=== PATIENT | female | born 1945 | race Caucasian/White ===

== ENCOUNTER 2017-04-14 08:38 | Emergency (ER) | payer MEDICARE, BC ==
[2017-04-14 08:47] VITALS: BP 117/86
[2017-04-14] MEDS ORDERED: Albuterol 2.5 MG/3 ML NEB.SOL* (0.083%) INH ONE (08:53)
[2017-04-14] MEDS ORDERED: Ipratropium 0.5MG/2.5ML NEB* 0.5 MG/2.5 ML NEB.SOLN INH ONE (08:53)
--- NOTE | 2017-04-14 08:57 | UC ---
Respiratory Complaint HPI - HPI Summary HPI Summary: 71 yo female with cough x 1 1/2 weeks cough feel like it is in her chest chest tightness no f/c myalgias and malaise no n/v/d has sinus pressure and post nasal drip - History of Current Complaint Chief Complaint: UCGeneralIllness Stated Complaint: URI Time Seen by Provider: 04/14/17 08:47 Hx Obtained From: Patient Onset/Duration: Gradual Onset, Lasting Weeks - 1 1/2 Timing: Constant Severity Initially: Mild Severity Currently: Moderate Pain Intensity: 3 - back pain is worse Pain Scale Used: 0-10 Numeric Character: Cough: Nonproductive Aggravating Factors: Nothing Alleviating Factors: Nothing Associated Signs And Symptoms: Positive: Wheezing, URI, Nasal Congestion, Sinus Discomfort - Allergies/Home Medications Allergies/Adverse Reactions: Allergies Allergy/AdvReac Type Severity Reaction Status Date / Time No Known Allergies Allergy Verified 04/14/17 08:41 Home Medications: Home Medications Cetirizine* [ZyrTEC 10 MG TAB*] 1 tab PO DAILY 04/14/17 [History Confirmed 04/14] Citalopram TAB* [Celexa TAB*] 20 mg PO BID 04/14/17 [History Confirmed 04/14/17] Lansoprazole [Prevacid] 1 cap PO BID 04/14/17 [History Confirmed 04/14/17] Solifenacin(NF) [Vesicare(NF)] 1 tab PO DAILY 04/14/17 [History Confirmed ] Tiotropium CAP.INH* [Spiriva CAP.INH*] 04/14/17 [History] buPROPion TAB* [Wellbutrin TAB*] 300 mg PO DAILY 04/14/17 [History Confirmed ] PMH/Surg Hx/FS Hx/Imm Hx Previously Healthy: Yes - Surgical History Surgical History: Yes Surgery Procedure, Year, and Place: 2009 -INTERSPINOUS SPACERS IN L3-L4 AND L-4 TO L-5 *DR JEANETTE SABA FOR ANYWHERE*, HYSTERECTOMY, CHOLECYSTECTOMY - Family History Known Family History: Positive: Hypertension Negative: Cardiac Disease, Diabetes - Social History Alcohol Use: None Substance Use Type: None Smoking Status (MU): Never Smoked Tobacco Review of Systems Constitutional: Fatigue Skin: Negative Eyes: Negative ENT: Nasal Discharge, Sinus Congestion, Sinus Pain/Tenderness Respiratory: Cough Cardiovascular: Negative Gastrointestinal: Negative Genitourinary: Negative Motor: Negative Neurovascular: Negative Musculoskeletal: Negative Neurological: Negative Psychological: Negative Is Patient Immunocompromised?: No All Other Systems Reviewed And Are Negative: Yes Physical Exam Triage Information Reviewed: Yes Appearance: Well-Appearing, No Pain Distress, Well-Nourished Vital Signs: Initial Vital Signs Temp 97.3 F 04/14/17 08:44 Pulse 72 04/14/17 08:44 Resp 16 04/14/17 08:44 BP 117/86 04/14/17 08:44 Pulse Ox 96 04/14/17 08:44 Vital Signs Reviewed: Yes Eyes: Positive: Conjunctiva Clear ENT: Positive: Hearing grossly normal, Nasal congestion, Nasal drainage, TMs normal. Negative: Tonsillar swelling, Tonsillar exudate, Trismus, Muffled/ hoarse voice Neck: Positive: Supple, Nontender Respiratory: Positive: No respiratory distress, No accessory muscle use, Wheezing - with forced expiration ONLY, OTHERWISE CLEAR Cardiovascular: Positive: RRR, No Murmur Musculoskeletal: Positive: ROM Intact, No Edema Neurological Exam: Normal Psychological Exam: Normal Skin Exam: Normal UC Diagnostic Evaluation - Laboratory O2 Sat by Pulse Oximetry: 96 - NORMAL/NOT HYPOXIC - Radiology Xray Interpretation: Positive (See Comments) - Minimal linear subsegmental atelectasis at the lower lung zones. No alveolar Radiology Interpretation Completed By: Radiologist Re-Evaluation - Re-Evaluation First Eval Re-Evaluation Time: 10:06 Change: Unchanged - LUNGS CLEAR/PT SUBJECTIVELY UNCHANGED Respiratory Course/Dx - Differential Dx/Diagnosis Provider Diagnoses: ACUTE BRONCHITIS Discharge - Discharge Plan Condition: Stable Disposition: HOME Prescriptions: Amoxicillin PO (*) [Amoxicillin 875 MG (*)] 875 mg PO BID #20 tab Benzonatate CAP* [Tessalon CAP*] 100 - 200 mg PO TID PRN #28 cap PRN Reason: Cough Patient Education Materials: Acute Bronchitis (ED) Referrals: Randell Bowman MD [Primary Care Provider] - Additional Instructions: RECHECK SUNDAY PLANNED
--- NOTE | 2017-04-14 09:19 | RAD ---
INDICATION: Cough for 1.5 weeks. Chest pressure. COMPARISON: June 14, 2010 TECHNIQUE: Dual energy PA and routine lateral views of the chest were obtained. REPORT: Minimal linear subsegmental atelectasis at the lower lung zones. No alveolar consolidation suspicious for pneumonia. Negative for pleural effusion or pneumothorax. The heart, pulmonary vasculature, and mediastinal contours are unremarkable. Unremarkable osseous structures and soft tissue contours. IMPRESSION: Minimal basilar subsegmental atelectasis without additional finding.
== END 2017-04-14 10:10 | disposition home or self-care (01) ==
LOC: UCEAST 08:38
DX: J20.9 Acute bronchitis, unspecified (principal); J98.11 Atelectasis
CPT/HCPCS: 71020; 99212; G0463; J7644

== ENCOUNTER 2017-04-30 16:06 | Emergency (ER) | payer MEDICARE, BC ==
[2017-04-30] MEDS ORDERED: diPHENhydraMINE IV* 50 MG/ML 1 ml VIAL (BENADRYL) IV ONE (17:10)
[2017-04-30] MEDS ORDERED: methylPREDNISolone 125 MG* 2 ML VIAL IV ONE (17:11)
[2017-04-30] MEDS ORDERED: Famotidine IV* 10 MG/ML 2 ML (20 mg) IV SLOW PU ONE (17:11)
[2017-04-30 19:10] VITALS: BP 111/72
--- NOTE | 2017-05-01 02:13 | ED ---
Mai Vyas Edward, scribed for Alessandra Segovia MD on 04/30/17 at 1638 . Allergic Reaction/Systemic - HPI Summary HPI Summary: 71 y/o female presents to the ED c/o sudden onset allergic reaction starting at around 02:00 last night. The pt developed hives diffusely @ her upper body and swelling @ her lower lip. The hives are pruritic. Denies CP, trouble swallowing or difficulty breathing. The pain is aggravated with movement and turning her neck. Associated sx: nausea, cough. Pt was sent to the ED by Dr. Bowman's office. Pt received an epidural shot on 04/25/17. - History of Current Complaint Chief Complaint: EDAllergicReaction Hx Obtained From: Patient Onset/Duration: Sudden Onset, Started hours ago Timing: Constant Pain Intensity: 5 Pain Scale Used: 0-10 Numeric Character: Pruritus, Hives Aggravating Factor(s): Other - walking, turning her neck Alleviating Factor(s): Nothing Associated Signs And Symptoms: Positive: Nausea. Negative: Chest Pain, Difficulty Breathing, Throat Tightening, Vomiting - Allergies/Home Medications Allergies/Adverse Reactions: Allergies Allergy/AdvReac Type Severity Reaction Status Date / Time Sucralfate Allergy Hives Verified 04/30/17 18:45 PMH/Surg Hx/FS Hx/Imm Hx Previously Healthy: No Endocrine/Hematology History: Denies: Hx Diabetes Cardiovascular History: Denies: Hx Hypertension - RESOLVED NO HAS HYPERTENSION, Hx Pacemaker/ICD GI History: Reports: Hx Gastroesophageal Reflux Disease History: Denies: Hx Renal Disease Sensory History: Denies: Hx Hearing Aid Psychiatric History: Denies: Hx Panic Disorder - Cancer History Hx Chemotherapy: No Hx Radiation Therapy: No - Surgical History Surgery Procedure, Year, and Place: 2009 -INTERSPINOUS SPACERS IN L3-L4 AND L-4 TO L-5 *DR JEANETTE SABA FOR ANYWHERE*, HYSTERECTOMY, CHOLECYSTECTOMY Infectious Disease History: No Infectious Disease History: Denies: Traveled Outside the [place] in Last 30 Days - Family History Known Family History: Positive: Hypertension Negative: Cardiac Disease, Diabetes - Social History Alcohol Use: None Hx Substance Use: No Substance Use Type: Reports: None Hx Tobacco Use: No Smoking Status (MU): Never Smoked Tobacco Review of Systems Constitutional: Negative Eyes: Negative ENT: Negative Cardiovascular: Negative Positive: Cough Positive: Nausea Genitourinary: Negative Musculoskeletal: Negative Skin: Other - hives diffusely Neurological: Negative Psychological: Normal All Other Systems Reviewed And Are Negative: Yes Physical Exam - Summary Physical Exam Summary: Appearance: Well-appearing, no pain distress, Well-nourished Skin: Warm, color reflects adequate perfusion. Total body uricaria. Head: Normal Head/Face Eyes: Conjunctiva clear ENT: Normal Neck: Supple Respiratory: Lungs clear, Normal breath sounds, no respiratory distress Cardio: RRR, No murmur, pulses normal, brisk capillary refill Musculoskeletal: Strength Intact/ ROM intact Neuro: Alert, muscle tone normal, facial symmetry, tongue deviates to the L, dysarthria, hull and deck remover equal, Motor function 5/5, Sensations intact, Gait WNL. Negative: speech normal, CN II-XII intact, sensory/motor intact Triage Information Reviewed: Yes Vital Signs On Initial Exam: Initial Vitals Temp Pulse Resp BP Pulse Ox 99 F 89 19 129/71 96 04/30/17 16:24 04/30/17 16:24 04/30/17 16:24 04/30/17 16:24 04/30/17 16:24 Vital Signs Reviewed: Yes - Mc Coma Scale Coma Scale Total: 15 Diagnostics - Vital Signs Vital Signs Temp Pulse Resp BP Pulse Ox 04/30/17 16:24 99 F 89 19 129/71 96 - Laboratory Lab Statement: Any lab studies that have been ordered have been reviewed, and results considered in the medical decision making process. Re-Evaluation - Re-Evaluation 1 Re-Evaluation Time: 18:37 Change: Improved Comment: Lip swelling improved. Redness at the knee and the back faded. Pt c/o dizziness. Pt will be d/c home with f/u with Dr. Bowman. Pt is agreeable Allergic Reaction Course/Dx - Course Assessment/Plan: 71 y/o female presents to the ED c/o sudden onset allergic reaction starting at around 02:00 last night. The pt developed hives diffusely @ her upper body and swelling @ her lower lip. The hives are pruritic. Denies CP , trouble swallowing or difficulty breathing. The pain is aggravated with movement and turning her neck. Associated sx: nausea. Pt was sent to the ED by Dr. Bowman's office. Pt received an epidural shot on 04/25/17. On re-eval, pt's lip swelling and redness has improved. Pt will be d/c home, instructed to take Benadryl 50 mg 4 times a day for at least 48 hours and then as long as needed. Pt is agreeable - Diagnoses Provider Diagnoses: Allergic reaction, Angioedema Discharge - Discharge Plan Condition: Stable Disposition: HOME Prescriptions: Famotidine TAB* [Pepcid 20 MG TAB*] 40 mg PO DAILY #10 tab predniSONE TAB* [Deltasone TAB*] 40 mg PO DAILY #10 tab Patient Education Materials: General Allergic Reaction (ED), Angioedema (ED) Referrals: Randell Bowman MD [Primary Care Provider] - 3 Days (PLEASE F/U IN 2-3 DAYS) Additional Instructions: TAKE 50 MG BENADRYL 4 TIMES A DAY FOR AT LEAST 48 HOURS AND THEN LONG NEEDED STOP THE SUCRALFATE TAKE PEPCID and XYZAL TAKE PREDNISONE DIRECTED RETURN TO THE ED FOR RETURN OR WORSENING SYMPTOMS The documentation as recorded by the Mai henderson Edward accurately reflects the service I personally performed and the decisions made by , Alessandra Segovia MD.
== END 2017-04-30 19:10 | disposition home or self-care (01) ==
LOC: ED 16:06
DX: T78.3XXA Angioneurotic edema, initial encounter (principal); T78.40XA Allergy, unspecified, initial encounter; R05 Cough; X58.XXXA Exposure to other specified factors, initial encounter; R11.0 Nausea
CPT/HCPCS: 99283; J1200; J2930

== ENCOUNTER 2017-07-03 06:23 | Day surgery (SDC) | payer MEDICARE, BC ==
[~2017-07-03 06:23] MED LIST: Buffered Lidocaine 0.9% SYRIN* 5 ML/SYR SYRINGE INTRADERM ONE; DiMENhydriNATE IV* 50 MG/ML VIAL IV PUSH PRN; Famotidine IV* 10 MG/ML 2 ML (20 mg) IV ONE; Morphine INJ* 2 MG/ML 1 ML CARPUJECT IV PRN; PROCHLORPERAZINE INJ 5 MG/ML 2 ML VIAL IV PRN; Scopolamine 1.5 mg* PATCH TRANSDERM PRN; fentaNYL* 50 MCG/ML 2 ML VIAL (100 MCG VIAL) IV PRN; oxyCODONE/Acetamin 5/325 MG* TAB PO PRN
[2017-07-03] MEDS ORDERED: ceFAZolin 2 GM PREMIX (*) 2 GM/50 ML BAG IVPB ONE (06:46)
[2017-07-03] MEDS ORDERED: Famotidine IV* 10 MG/ML 2 ML (20 mg) ONE (06:46)
[2017-07-03] MEDS ORDERED: Buffered Lidocaine 0.9% SYRIN* 5 ML/SYR SYRINGE ONE (06:47)
[2017-07-03] MEDS ORDERED: fentaNYL* 50 MCG/ML 2 ML VIAL (100 MCG VIAL) ONE (07:22)
[2017-07-03] MEDS ORDERED: Atracurium* 10 MG/ML 10 ML VIAL ONE (07:22)
[2017-07-03] MEDS ORDERED: Midazolam* 1 MG/ML 10 ML VIAL (10 MG) ONE (07:23)
[2017-07-03] MEDS ORDERED: KETAMINE HCL* 50 MG/ML 10 ML VIAL ONE (07:23)
[2017-07-03] MEDS ORDERED: Thrombin 5,000 UNITS* 1 APPLIC KIT - topical use - TOPICAL ONE (07:33)
[2017-07-03] MEDS ORDERED: Bacitracin IV* 50,000 UNITS INJ ONE (07:33)
[2017-07-03] MEDS ORDERED: Lidocaine 1% MPF wEPI 200,000* 30 ML SDV ONE (07:33)
[2017-07-03] MEDS ORDERED: Benzocaine/Butamben/Tetracain* SPRAY ONE (08:00)
[2017-07-03] MEDS ORDERED: Labetalol IV* 5 MG/ML 20 ML VIAL ONE (09:18)
[2017-07-03] MEDS ORDERED: Glycopyrrolate IV* 0.2 MG/ML 1 ML VIAL ONE (09:19)
[2017-07-03] MEDS ORDERED: Lidocaine 2% PF * 5 ML VIAL ONE (09:19)
[2017-07-03] MEDS ORDERED: Neostigmine Methylsulfate* 2 MG/2 ML SYRINGE ONE (09:19)
[2017-07-03] MEDS ORDERED: hydrALAZINE IV* 20 MG/ML VIAL ONE (09:19)
[2017-07-03] MEDS ORDERED: Metoprolol Tartrate IV* 1 MG/ML 5 ML VIAL ONE (09:19)
[2017-07-03] MEDS ORDERED: Propofol* 10 MG/ML 20 ML BTL IV PUSH ONE (09:19)
[2017-07-03 10:39] VITALS: BP 131/80
[2017-07-06] MEDS ORDERED: Scopolamine PATCH Remove* 1 NOTE MISC PATCH OFF ONE (05:53)
== END 2017-07-03 11:49 | disposition home or self-care (01) ==
LOC: OR 06:23
PROVIDERS: ATTEND Neurological Surgery
DX: M48.062 Spinal stenosis, lumbar region with neurogenic claudication (principal); Z53.09 Procedure and treatment not carried out because of other contraindication; T88.4XXA Failed or difficult intubation, initial encounter; K21.9 Gastro-esophageal reflux disease without esophagitis
CPT/HCPCS: A9270-GY; J0360; J0690; J2001; J2250; J2704; J3010; J3490

== ENCOUNTER 2017-07-10 12:53 | Observation (INO) | payer MEDICARE, BC ==
[~2017-07-10 12:53] MED LIST changes: +Buffered Lidocaine 0.9% SYRIN* 5 ML/SYR SYRINGE ONE; +Famotidine IV* 10 MG/ML 2 ML (20 mg) ONE; -Scopolamine 1.5 mg* PATCH TRANSDERM PRN; -oxyCODONE/Acetamin 5/325 MG* TAB PO PRN
[2017-07-10] MEDS ORDERED: Phenylephrine 0.5% NASAL* BTL ONE (12:55)
[2017-07-10] MEDS ORDERED: Benzocaine/Butamben/Tetracain* SPRAY ONE (12:55)
[2017-07-10] MEDS ORDERED: Bacitracin IV* 50,000 UNITS INJ ONE (12:55)
[2017-07-10] MEDS ORDERED: Lidocaine 1% MPF wEPI 200,000* 30 ML SDV ONE (12:55)
[2017-07-10] MEDS ORDERED: Thrombin 5,000 UNITS* 1 APPLIC KIT - topical use - TOPICAL ONE (12:55)
[2017-07-10] MEDS ORDERED: Lidocaine 4% TOPICAL* 50 ML TOP.SOLN ONE (12:55)
[2017-07-10] MEDS ORDERED: fentaNYL* 50 MCG/ML 2 ML VIAL (100 MCG VIAL) ONE (13:14)
[2017-07-10] MEDS ORDERED: KETAMINE HCL* 50 MG/ML 10 ML VIAL ONE (13:15)
[2017-07-10] MEDS ORDERED: Midazolam* 1 MG/ML 10 ML VIAL (10 MG) ONE (13:15)
[2017-07-10] MEDS ORDERED: ceFAZolin 1 GM in Dextrose (*) 2 GM/100 ML BAG IVPB ONE (14:30)
[2017-07-10] MEDS ORDERED: Morphine INJ* 10 MG/ML 1 ML CARPUJECT ONE (15:49)
[2017-07-10] MEDS ORDERED: Propofol* 10 MG/ML 20 ML BTL IV PUSH ONE (15:49)
[2017-07-10] MEDS ORDERED: Dexamethasone IV* 4 MG/ML 1 ML (4 MG) ONE (15:49)
[2017-07-10] MEDS ORDERED: Glycopyrrolate IV* 0.2 MG/ML 1 ML VIAL ONE (15:49)
[2017-07-10] MEDS ORDERED: Neostigmine Methylsulfate* 2 MG/2 ML SYRINGE ONE (15:49)
[2017-07-10] MEDS ORDERED: hydrALAZINE IV* 20 MG/ML VIAL ONE (15:49)
[2017-07-10] MEDS ORDERED: Ondansetron INJ* 2 MG/ML VIAL ONE (15:49)
[2017-07-10] MEDS ORDERED: Lidocaine 2% PF * 5 ML VIAL ONE (15:49)
[2017-07-10] MEDS ORDERED: Acetaminophen TAB* 325 MG PO PRN (16:07)
[2017-07-10] MEDS ORDERED: Magnesium Hydroxide LIQ* 30 ML UDC PO PRN (16:07)
[2017-07-10] MEDS ORDERED: PROCHLORPERAZINE INJ 5 MG/ML 2 ML VIAL IV PRN (16:11)
[2017-07-10] MEDS ORDERED: oxyCODONE/Acetamin 5/325 MG* TAB ONE (16:34)
[2017-07-10] MEDS: oxyCODONE/Acetamin 5/325 MG* TAB PO PRN ×2 (16:35→16:36)
--- NOTE | 2017-07-10 18:28 | RAD ---
INDICATION: L2-L3 laminectomy COMPARISON: None TECHNIQUE: A single crosstable lateral image was obtained for operative control purposes FINDINGS: There is a curved hemostat and there are retractors at the L2-L3 level.
[2017-07-10] MEDS: HYDROcodone/ACETAMIN 5-325 MG* 1 TAB PO PRN (22:17)
[2017-07-11] MEDS: HYDROcodone/ACETAMIN 5-325 MG* 1 TAB PO PRN ×2 (03:09→07:28)
[2017-07-11 07:39] VITALS: BP 132/66
--- NOTE | 2017-07-11 08:02 | PN ---
Progress Note - Progress Note Date of Service: 07/11/17 SOAP: Subjective: []POD # 1 Pre op leg pain relieved C/O incisional pain Ambulating ,voiding without difficulty Objective: []Drain slowed Neuro intact Assessment: []Satis post op course Plan: []D/C today D/C Instructions given
[2017-07-11] MEDS ORDERED: Citalopram TAB* 20 MG PO SCH (09:00)
[2017-07-11] MEDS ORDERED: BuPROPion XL* 300 MG TAB.XL PO SCH (09:00)
[2017-07-11] MEDS ORDERED: CMCS Solifenacin(NF) 5 MG TAB PO SCH (09:00)
[2017-07-11] MEDS ORDERED: Omeprazole CAP* 20 MG PO SCH (09:00)
[2017-07-11] MEDS ORDERED: Famotidine TAB* 20 MG PO SCH (09:00)
--- NOTE | 2017-07-12 21:29 | OP ---
OPERATIVE REPORT: DATE OF OPERATION: 07/10/17 DATE OF : 49 PRIMARY SURGEON: Jorge Watson MD SCREEN PRINTING PASTER: TOMASZ Chapa ANESTHESIA: General. PRE-OP DIAGNOSIS: Lumbar spinal stenosis, L2-3. POST-OP DIAGNOSIS: Lumbar spinal stenosis, L2-3. OPERATIVE PROCEDURE: Decompressive lumbar laminectomy, L2-3. DESCRIPTION OF PROCEDURE: After satisfactory general anesthesia was obtained, the patient was placed on the operating room table in a prone position with the chest supported on the Eugene frame and the back slightly flexed. The lumbar region was then clipped, prepped and draped in a sterile manner fo r a lumbar laminectomy and the skin incision outlined from L2 to L4. This incision was infiltrated w ith 1% Xylocaine with epinephrine after which it was turned down sharply to the level of the lumbar f ascia. The fascia and scar tissue were divided along the spinous processes of L2 and L3 and the para spinal musculature stripped away from these posterior elements using the periosteal elevator and mono polar cautery. An intraoperative x-ray was obtained verifying proper interspace localization after w hich a decompression was carried out by removing the spinous process of L2 with a Leksell rongeur as well as the most superior aspect of the spinous process of L3. The patient had a previous clamp place d on the spinous processes between L3 and L4 and this was not disturbed. Utilizing the Midas Jamie dri ll, the remaining portion of the base of the spinous process of L2 as well as the thickened medial fa cet complex was thinned out. A decompression was then carried out with Kerrison rongeurs. This was carried superiorly until the attachment of ligamentum flavum was taken down. The ligamentum flavum w as then removed with the Kerrison as well. There was marked compromise at the level of the L3 pedicle s. This was decompressed with the Kerrison's including removing the most superior aspect of the L3 p osterior elements. At the conclusion of the decompression, both L3 nerve roots were noted to be free in their course. After assuring adequate hemostasis, the wound was thoroughly irrigated, after whic h a piece of Gelfoam was placed over the laminectomy defect. A drain was placed in the epidural spac e and tunneled out toward the left side. The fascia was then reapproximated with 0 Vicryl suture, th e subcutaneous tissue was closed with 3-0 Vicryl suture, and the skin closed with skin clips. The es timated blood less was 100 cc and the final sponge, padding, and needle counts were correct. The pat ient was taken to the recovery room, extubated and in stable condition. [id number]/[facility] #: [id number]
== END 2017-07-11 10:20 | disposition home or self-care (01) ==
LOC: OR 12:53 → SSU 17:36
PROVIDERS: ADMIT Neurological Surgery; ATTEND Neurological Surgery
PROC: 00NY0ZZ Release Lumbar Spinal Cord, Open Approach (ICD-10-PCS; principal; 2017-07-10 14:30)
DX: M48.061 Spinal stenosis, lumbar region without neurogenic claudication (principal)
CPT/HCPCS: 72100; 96365; 96375; 96376; A9270-GY; G0378; J0360; J0690; J1100; J2001; J2250; J2270; J2405; J2704; J3010

== ENCOUNTER 2018-01-22 05:58 | Observation (INO) | payer MEDICARE ==
[~2018-01-22 05:58] MED LIST changes: -Buffered Lidocaine 0.9% SYRIN* 5 ML/SYR SYRINGE ONE; -DiMENhydriNATE IV* 50 MG/ML VIAL IV PUSH PRN; -Famotidine IV* 10 MG/ML 2 ML (20 mg) IV ONE; -Famotidine IV* 10 MG/ML 2 ML (20 mg) ONE; -Morphine INJ* 2 MG/ML 1 ML CARPUJECT IV PRN; -PROCHLORPERAZINE INJ 5 MG/ML 2 ML VIAL IV PRN; -fentaNYL* 50 MCG/ML 2 ML VIAL (100 MCG VIAL) IV PRN
[2018-01-22] MEDS ORDERED: Sodium Citrate/Citric Acid* 15 ML UDC PO ONE (06:00)
[2018-01-22] MEDS ORDERED: Famotidine IV* 10 MG/ML 2 ML (20 mg) IV ONE (06:00)
[2018-01-22] MEDS ORDERED: Dexamethasone IV* 4 MG/ML 1 ML (4 MG) IV SLOW PU ONE (06:00)
[2018-01-22] MEDS ORDERED: Famotidine IV* 10 MG/ML 2 ML (20 mg) ONE (06:16)
[2018-01-22] MEDS ORDERED: Dexamethasone IV* 4 MG/ML 1 ML (4 MG) ONE (06:16)
[2018-01-22] MEDS ORDERED: Buffered Lidocaine 0.9% SYRIN* 5 ML/SYR SYRINGE ONE (06:17)
[2018-01-22] MEDS ORDERED: Sodium Citrate/Citric Acid* 15 ML UDC ONE (06:17)
[2018-01-22] MEDS ORDERED: ceFAZolin 2 GM PREMIX (*) 2 GM/50 ML BAG IVPB ONE (06:17)
[2018-01-22] MEDS ORDERED: Lidocaine 1% MPF wEPI 200,000* 30 ML SDV ONE (06:42)
[2018-01-22] MEDS ORDERED: Thrombin 5,000 UNITS* 1 APPLIC KIT - topical use - TOPICAL ONE (06:43)
[2018-01-22] MEDS ORDERED: Bacitracin IV* 50,000 UNITS INJ ONE ×2 (07:12→07:39)
[2018-01-22] MEDS ORDERED: Rocuronium* 10 MG/ML VIAL ONE (07:20)
[2018-01-22] MEDS ORDERED: Midazolam* 1 MG/ML 2 ML VIAL (2 MG) ONE (07:21)
[2018-01-22] MEDS ORDERED: fentaNYL* 50 MCG/ML 2 ML VIAL (100 MCG VIAL) ONE ×2 (07:22→08:54)
[2018-01-22] MEDS ORDERED: Lidocaine 4% TOPICAL* 50 ML TOP.SOLN ONE (07:29)
[2018-01-22] MEDS ORDERED: Lidocaine 2% VISCOUS* 15 ML UDC ONE (07:29)
[2018-01-22] MEDS ORDERED: Naloxone* 0.4 MG/ML 1 ML VIAL IV PRN (07:34)
[2018-01-22] MEDS ORDERED: oxyCODONE/Acetamin 5/325 MG* TAB PO PRN (07:34)
[2018-01-22] MEDS ORDERED: fentaNYL* 50 MCG/ML 2 ML VIAL (100 MCG VIAL) IV PRN (07:34)
[2018-01-22] MEDS ORDERED: HYDROmorphone INJ* 0.5 MG/0.5 ML SYRINGE IV PRN (07:34)
[2018-01-22] MEDS ORDERED: Ondansetron INJ* 2 MG/ML VIAL IV PRN (07:34)
[2018-01-22] MEDS ORDERED: Scopolamine 1.5 mg* PATCH TRANSDERM PRN (07:34)
[2018-01-22] MEDS ORDERED: Acetaminophen IV 1GM/100ML * 1,000 MG/100 ML VIAL IVPB ONE (07:34)
[2018-01-22] MEDS ORDERED: Gelfoam 12-7 ADSORBABL SPONGE* 1 EA SPONGE ONE (07:39)
[2018-01-22] MEDS ORDERED: Gelfoam Sponge SIZE 100* SPONGE ONE (08:06)
[2018-01-22] MEDS ORDERED: Propofol* 10 MG/ML 20 ML BTL IV PUSH ONE (08:16)
[2018-01-22] MEDS ORDERED: Succinylcholine* 20 MG/ML 10 ML VIAL ONE (08:16)
[2018-01-22] MEDS ORDERED: Ketorolac INJ* 30 MG/ML 1 ML VIAL ONE (08:37)
[2018-01-22] MEDS ORDERED: EPHEDrine (Pressors)* 50 MG/ML VIAL ONE (08:37)
[2018-01-22] MEDS ORDERED: Desflurane* 240 ML INH ONE (09:00)
[2018-01-22] MEDS ORDERED: Acetaminophen TAB* 325 MG PO PRN (09:33)
[2018-01-22] MEDS ORDERED: HYDROcodone/ACETAMIN 5-325 MG* 1 TAB PO PRN (09:33)
[2018-01-22] MEDS ORDERED: Magnesium Hydroxide LIQ* 30 ML UDC PO PRN (09:33)
[2018-01-22] MEDS ORDERED: Acetaminophen IV 1GM/100ML * 100 ML ONE (10:17)
--- NOTE | 2018-01-22 12:08 | RAD ---
Indication: RIGHT lumbar L4-L5 discectomy. December 28, 2017 MRI. Comparison: December 28, 2017 MRI Technique: Crosstable lateral prone lumbar sacral spine radiograph 0815 hours Cross table lateral prone lumbar sacral spine radiograph 0841 hours Report: 0815 hours exam documents tissue retractor and instrument at the level of the L4-L5 facet joints. 0841 hours exam documents tissue retractor and instrument at the level of the L4 pedicle. IMPRESSION: #. Intraoperative control films.
[2018-01-22] MEDS: Citalopram TAB* 20 MG PO SCH ×2 (12:45→20:22)
[2018-01-22] MEDS: BuPROPion XL* 300 MG TAB.XL PO SCH (12:45)
[2018-01-22] MEDS: CMC: Solifenacin(NF) 5 MG TAB PO SCH (17:45)
[2018-01-22] MEDS: oxyCODONE TAB* 5 MG TAB PO PRN ×2 (18:55→22:49)
[2018-01-22] MEDS ORDERED: Atorvastatin* 20 MG TAB PO SCH (21:00)
[2018-01-23] MEDS: oxyCODONE TAB* 5 MG TAB PO PRN ×2 (02:48→06:41)
[2018-01-23] MEDS: Citalopram TAB* 20 MG PO SCH (07:29)
[2018-01-23] MEDS: BuPROPion XL* 300 MG TAB.XL PO SCH (07:29)
[2018-01-23] MEDS: CMC: Solifenacin(NF) 5 MG TAB PO SCH (07:29)
[2018-01-23] MEDS ORDERED: Aspirin 81 mg CHEW TAB* 81 MG TAB.CHEW PO SCH (09:00)
[2018-01-23] MEDS ORDERED: Omeprazole CAP* 20 MG PO SCH (09:00)
[2018-01-23] MEDS ORDERED: Famotidine TAB* 20 MG PO SCH (09:00)
[2018-01-23 09:31] VITALS: BP 141/77
[2018-01-25] MEDS ORDERED: Scopolamine PATCH Remove* 1 NOTE MISC PATCH OFF ONE (07:35)
--- NOTE | 2018-01-26 13:52 | OP ---
OPERATIVE REPORT: DATE OF OPERATION: 01/22/18 DATE OF : 49 SURGEON: Jorge Watson MD SHREDDED FILLER HOPPER FEEDER: TOMASZ Chapa ANESTHESIA: General. PRE-OP DIAGNOSIS: Herniated nucleus pulposus, L4-5, on the right. POST-OP DIAGNOSIS: Herniated nucleus pulposus, L4-5, on the right. OPERATIVE PROCEDURE: Lumbar diskectomy at L4-5 on the right with lysis of cicatrix and excision of h erniated nucleus pulposus, L4-5, with microdissection. DESCRIPTION OF PROCEDURE: After satisfactory general anesthesia was obtained, the patient was placed on the operating table in the prone position with the chest supported on the Eugene frame and the ba ck slightly flexed. The lumbar region was then clipped, prepped, and draped in a sterile manner for lumbar laminectomy and a skin incision outlined along the previous incision from L3 to the sacrum. T he patient had previously undergone a lumbar posterior procedure in which she had spinous process cla mps placed at L4-5. The previously placed clamps were dissected free utilizing the monopolar cautery . Self-retaining retractors were placed to facilitate exposure. An intraoperative x-ray was obtaine d verifying proper interspace localization after which a partial hemilaminectomy was carried out at t he L4-5 level on the right side. This was done by thinning out the inferior aspect of the lamina at L4 and the medial aspect of the facet complex. There was noted to be marked facet hypertrophy at thi s level. The access to normal anatomy was actually obtained at the superior aspect of L4. The right side of the L4 lamina was then decompressed with a Kerrison. This was carried inferiorly until the ligamentum flavum at L4-5 was removed. At this point of the procedure, the operating microscope was brought into the field and the remainder of the procedure done under microscopic visualization. Proj ecting beneath the L5 nerve root was a subcapsular herniation of disk material. An opening was made in the posterior longitudinal ligament and the disk space cleared of any loose disk material using pi tuitary forceps and curettes. At the conclusion of the decompression, the L5 nerve root was noted to be free in its course. After assuring adequate hemostasis, the wound was thoroughly irrigated after which a piece of Gelfoam was placed over the laminectomy defect. The fascia was then reapproximated with 0 Vicryl suture, the subcutaneous tissues closed with 3-0 Vicryl suture, and the skin closed wi th skin clips. The estimated blood loss was less than 50 cc, and the final sponge, padding, and need le counts were correct. The patient was taken to the recovery room extubated and in stable condition . [id number]/[facility] #: [id number]
== END 2018-01-23 10:40 | disposition home or self-care (01) ==
LOC: OR 05:58 → SSU 09:33 → UNDODISOB 01-23 10:20
PROVIDERS: ADMIT Neurological Surgery; ATTEND Neurological Surgery
PROC: 01NB0ZZ Release Lumbar Nerve, Open Approach (ICD-10-PCS; 2018-01-22)
PROC: 0SB20ZZ Excision of Lumbar Vertebral Disc, Open Approach (ICD-10-PCS; principal; 2018-01-22 07:30)
DX: M51.16 Intervertebral disc disorders with radiculopathy, lumbar region (principal)
CPT/HCPCS: 72100; 88304; A9270-GY; G0378; J0330; J0690; J1100; J1885; J2001; J2250; J2704; J3010

== ENCOUNTER 2019-01-18 14:22 | Emergency (ER) | payer MEDICARE ==
--- NOTE | 2019-01-18 14:35 | UC ---
General HPI - HPI Summary HPI Summary: Pt is a 73 year old female with a medical history of anxiety as well as urinary incontinence. Patient states several years ago she was a medication for blood pressure but this is improved and she's not currently on it. Patient states last evening she was at an outside graduation. Patient states she developed feeling very warm nauseous lightheaded like she has not passed out. Patient states she went under medical tent with a use ice packs that didn't really seem to help her very much. Patient went home did not vomit. Patient states she woke up at 1:30 this morning with the worse headache of her life. Patient states her neck felt very tight and stiff when she woke up. Patient took 400 mg of Motrin at this time. Patient's states she did go back to sleep. Patient states she continues to have a headache since this time. Patient denies vomiting but states intermittently feels nauseous. No vision changes. No chest pain or shortness of breath. No abdominal pain. denies any changes to her speech or slurred words. Patient denies any problems with thought process or were generation. Patient states around 03/31/30 this morning she tried to grab the phone with her left hand when it slipped through her hand she did not have grasp this resolved and has not recurred. Patient is not on any anticoagulation. Patient without any history of anything similar. Patient does have a remote history of migraines has been migraine free for several years and states this feels very different than anything she is experience. Patient's medications reviewed this visit. Patient's is at bedside. - History of Current Complaint Stated Complaint: NECK PAIN Time Seen by Provider: 01/18/19 14:32 Hx Obtained From: Patient Onset Severity: Mild Current Severity: Mild - Allergy/Home Medications Allergies/Adverse Reactions: Allergies Allergy/AdvReac Type Severity Reaction Status Date / Time sucralfate Allergy Swelling Verified 01/18/19 14:33 Of Face,Lips,& Throat Home Medications: Home Medications Ibuprofen 400 mg PO ONCE PRN 01/18/19 [History Confirmed 01/18/19] LevoCETirizine TAB (NF) [Xyzal TAB (NF)] 1 tab PO DAILY 01/18/19 [History Confirmed 01/18/19] National Institutes Of Health - NIH Scale Level of Consciousness: Alert/Keenly Responsive Ask Patient the Month and His/Her Age: Both Correct Ask Pt to Open/Close Eyes and Spoon Maker/Release Non-Paretic Hand: Both Correctly Best Gaze (Only Horizontal Eye Movement): Normal Visual Field Testing: No Visual Loss Facial Paresis-Pt to Smile & Close Eyes or Grimace Symmetry: Normal/Symmetrical Motor Function - Right Arm: No Drift-Holds 10 Seconds Motor Function - Left Arm: No Drift-Holds 10 Seconds Motor Function - Right Leg: No Drift-Holds 10 Seconds Motor Function - Left Leg: No Drift-Holds 10 Seconds Limb Ataxia-Must be out of Proportion to Weakness Present: Absent Sensory (Use Pinprick to Test Arms/Legs/Trunk/Face): Normal - gross - not pinprick Best Language (Describe Picture, Name Items): No Aphasia PMH/Surg Hx/FS Hx/Imm Hx Previously Healthy: Yes Other GI/ History: urinary incontinence Psychological History: Anxiety - Surgical History Surgical History: Yes Surgery Procedure, Year, and Place: 2009 -INTERSPINOUS SPACERS IN L3-L4 AND L-4 TO L-5 *DR JEANETTE SABA FOR ANYWHERE*, HYSTERECTOMY, CHOLECYSTECTOMY. 06/2017 DECOMPRESSIVE LAMINECTOMY L2-3 - Family History Known Family History: Positive: Hypertension Negative: Cardiac Disease, Diabetes - Social History Lives: With Family Alcohol Use: Rare Substance Use Type: None Smoking Status (MU): Never Smoked Tobacco Have You Smoked in the Last Year: No - Immunization History Most Recent Influenza Vaccination: 2017 Most Recent Pneumonia Vaccination: 2016 Review of Systems All Other Systems Reviewed And Are Negative: Yes Constitutional: Positive: Negative Skin: Positive: Negative Eyes: Positive: Negative ENT: Positive: Negative Respiratory: Positive: Negative Cardiovascular: Positive: Negative Motor: Positive: Other - LUE weakness earlier today Musculoskeletal: Positive: Negative Neurological: Positive: Negative Is Patient Immunocompromised?: No Physical Exam - Summary Physical Exam Summary: Vital Signs Reviewed: Yes A+Ox3, obvious headache and neck pain Eyes: Conjunctiva Clear, OCHOA. EOM intact and full ENT: Hearing grossly normal TM x 2 clear, mmoist, uvula midline, no exudate, no erythema Neck: Positive: Supple Respiratory: Positive: No respiratory distress, No accessory muscle use + CTA throughout no w/r Cardiovascular: RRR nl s1, s2 no m/r CBT <2 sec abd soft + BS nt/nd no guarding, no distension Musculoskeletal Exam: BLACKWELL x 4 without difficulty Strength Intact, ROM Intact, Neurological: Positive: Alert, + sensation throughout NIH = see exam separate section; + kernig sign Psychological: Positive: Normal Response To Family Skin: Positive: no rash, no ecchymosis Triage Information Reviewed: Yes Course/Dx - Course Course Of Treatment: Patient presents to urgent care with worse headache of her life that woke her from sleep at 1:30 this morning. Patient states last evening she felt that she got overheated nauseous and lightheaded while she was at a high school graduation outside. Patient states she went to bed and woke up at 1:30 with a headache. Patient took Motrin without improvement. Patient persistent headache and neck stiffness. Patient states at [place] [address] she had an episode of weakness of the left hand which has resolved and not recurred. Patient without chest pain shortness of breath. Patient without any other complaints. On exam vital signs are stable. Patient is not on anticoagulation. Patient's NIH is 0. Patient does have care Of the right lower extremity. Patient also obvious discomfort holding her neck and head with movement. Very concerning for subarachnoid hemorrhage. BG 180 EKG normal without acute changes. Recommend patient go emergency department by EMS for further evaluation and treatment. Patient in agreement with plan. Spoke to Dr. New in the emergency department aware patient's, will run as code stroke. critical care time 20 minutes - Diagnoses Provider Diagnosis: Severe headache, Nuchal rigidity Discharge - Sign-Out/Discharge Documenting (check all that apply): Patient Departure All imaging exams completed and their final reports reviewed: No Studies - Discharge Plan Condition: Fair Disposition: TRANS HIGHER LVL OF CARE FAC Referrals: Randell Bowman MD [Primary Care Provider] - - Billing Disposition and Condition Condition: FAIR Disposition: Trans Higher Lvl of Care Fac
[2019-01-18] MEDS ORDERED: NS 0.9% 1000 ML** 1,000 ML IV ONE (15:00)
[2019-01-18 15:01] VITALS: BP 135/68
== END 2019-01-18 15:14 | disposition short-term general hospital (02) ==
LOC: UCEAST 14:22
DX: R51 Headache (principal); R29.1 Meningismus; F41.9 Anxiety disorder, unspecified; R32 Unspecified urinary incontinence
CPT/HCPCS: 96361; 99213; G0463

== ENCOUNTER 2019-01-18 15:17 | Emergency (ER) | payer MEDICARE ==
[2019-01-18] MEDS ORDERED: NS 0.9% 1000 ML** 1,000 ML IV ONE (15:21)
--- NOTE | 2019-01-18 15:23 | ED ---
Neurological HPI - HPI Summary HPI Summary: This patient is a 73 year old F brought to ED with a chief complaint of sudden severe headache at 0100 this morning. Gonzalo Cody called by EMS at 1512 with ETA 5 minutes. Patient arrives at 1517. Dr. New at bedside at 1517, NIH scale in evaluation 0. Upon arrival, patient complains of headache worse on the left side. Patient reports having weakness in left hand this morning at 0900 lasting a few seconds. Last known normal was 1830 yesterday per . Yesterday at 1900, patient attended a graduation and was in the sun for 45 minutes. Per , her face was red after sitting in the sun. Patient felt like she was going to vomit then. She woke up this morning with neck pain and stiffness. Patient is not on blood thinners. The patient rates the pain 5/10 in severity. Symptoms aggravated by nothing. Symptoms alleviated by nothing. Patient reports confusion. Patient denies fever, CP, SOB, abdominal pain, numbness, slurred speech. No PMHx of strokes, HTN, cardiac disease, DM. - History of Current Complaint Stated Complaint: STROKE PER EMS Hx Obtained From: Patient, Family/Drapery Worker - , EMS Onset/Duration: Sudden Onset, Started hours ago - 0100 this morning, Still Present Timing: Constant Onset Severity: Moderate Current Severity: Moderate Pain Intensity: 5 Pain Scale Used: 0-10 Numeric Aggravating: Nothing Alleviating: Nothing Associated Signs and Symptoms: Positive: Negative - fever, CP, SOB, abdominal pain, numbness, slurred speech, Headache, Neck Pain/Stiffness - Additional Pertinent History Primary Care Physician: [id number] - Allergy/Home Medications Allergies/Adverse Reactions: Allergies Allergy/AdvReac Type Severity Reaction Status Date / Time sucralfate Allergy Swelling Verified 01/18/19 14:33 Of Face,Lips,& Throat PMH/Surg Hx/FS Hx/Imm Hx Endocrine/Hematology History: Denies: Hx Diabetes, Hx Anemia Cardiovascular History: Reports: Other Cardiovascular Problems/Disorders - Mixed hyperlipidemia Denies: Hx Hypertension - RESOLVED , Hx Pacemaker/ICD Respiratory History: Reports: Other Respiratory Problems/Disorders - Difficult airway, very difficult intubation GI History: Reports: Hx Gastroesophageal Reflux Disease Denies: Other GI Disorders History: Reports: Other Problems/Disorders - Urinary incontinence, on vesicare, no recent symptoms Denies: Hx Renal Disease Musculoskeletal History: Reports: Hx Arthritis - back, Hx Bursitis - HX OF LEFT HIP - AND CURRENTLY IN THE RIGHT LEG, Other Musculoskeletal History - SPINAL STENOSIS Denies: Hx Tendonitis Sensory History: Reports: Hx Contacts or Glasses - GLASSES, Hx Hearing Aid Opthamlomology History: Reports: Hx Contacts or Glasses - GLASSES Neurological History: Denies: Hx CVA, Hx Transient Ischemic Attacks (TIA), Other Neuro Impairments/ Disorders Psychiatric History: Reports: Hx Anxiety - ON MEDICATION FOR, Hx Depression - ON MEDICATION FOR Denies: Hx Panic Disorder - Cancer History Hx Chemotherapy: No Hx Radiation Therapy: No - Surgical History Surgery Procedure, Year, and Place: 2009 -INTERSPINOUS SPACERS IN L3-L4 AND L-4 TO L-5 *DR JEANETTE SABA FOR ANYWHERE*, HYSTERECTOMY, CHOLECYSTECTOMY. 06/2017 DECOMPRESSIVE LAMINECTOMY L2-3 Hx Anesthesia Reactions: No - Family History Known Family History: Positive: Hypertension Negative: Cardiac Disease, Diabetes - Social History Alcohol Use: Rare Hx Substance Use: No Substance Use Type: Reports: None Hx Tobacco Use: No Smoking Status (MU): Never Smoked Tobacco Review of Systems Negative: Fever Negative: Chest Pain Negative: Shortness Of Breath Negative: Abdominal Pain Neurological: Other - Confusion Positive: Headache, Weakness - Left hand, lasting a few seconds. Negative: Numbness, Slurred Speech All Other Systems Reviewed And Are Negative: Yes Physical Exam - Summary Physical Exam Summary: Appearance: Well appearing, no pain distress Skin: warm, dry, reflects adequate perfusion Head/face: normal Eyes: EOMI, OCHOA ENT: normal Neck: spasm of left side of neck Respiratory: CTA, breath sounds present Cardiovascular: RRR, pulses symmetrical Abdomen: non-tender, soft Musculoskeletal: normal, strength/ROM intact Neuro: normal, sensory motor intact, A&Ox3 NIH: 0 GCS: 15 Triage Information Reviewed: Yes Vital Signs On Initial Exam: Initial Vitals Temp Pulse Resp BP Pulse Ox 98.4 F 86 20 138/81 93 01/18/19 15:20 01/18/19 15:20 01/18/19 15:20 01/18/19 15:20 01/18/19 15:20 Vital Signs Reviewed: Yes Procedures - Lumbar Puncture Lumbosacral Joint Position: Lateral Decubitus Aseptic Technique: Local Anesthesia, Lidocaine, Other - Betadine prep Anesthesia Used: 1.0% Lido Spinal Needle Used: Other - 21 Gauge Lumbar Puncture Note: Patient has previously had surgery on L3-L5. Lumbar puncture unsuccessful. Therefore, I requested Dr. Ozuna from anesthesia to perform the procedure and ordered a lumbar spine x-ray. Diagnostics - Laboratory Result Diagrams: 01/18/19 15:37 01/18/19 15:37 Lab Statement: Any lab studies that have been ordered have been reviewed, and results considered in the medical decision making process. - Radiology CXR Radiology Interpretation Completed By: Radiologist Summary of Radiographic Findings: No active cardiopulmonary disease is noted. Dr. New has reviewed this radiology report. L-spine Radiology Interpretation Completed By: Radiologist Summary of Radiographic Findings: Multilevel degenerative disc disease. No compression fracture is noted. Dr. New has reviewed this radiology report. - CT Brain CT Interpretation Completed By: Radiologist Summary of CT Findings: No intracranial mass or hemorrhage is noted. Dr. New has reviewed this radiology report. - EKG 1532 Cardiac Rate: NL EKG Rhythm: Sinus Rhythm Summary of EKG Findings: NSR at 81 BPM. NIH Scale - NIH Scale Level of Consciousness: Alert/Keenly Responsive Ask Patient the Month and His/Her Age: Both Correct Ask Pt to Open/Close Eyes and Industrial Engineering Analyst/Release Non-Paretic Hand: Both Correctly Best Gaze (Only Horizontal Eye Movement): Normal Visual Field Testing: No Visual Loss Facial Paresis-Pt to Smile & Close Eyes or Grimace Symmetry: Normal/Symmetrical Motor Function - Right Arm: No Drift-Holds 10 Seconds Motor Function - Left Arm: No Drift-Holds 10 Seconds Motor Function - Right Leg: No Drift-Holds 10 Seconds Motor Function - Left Leg: No Drift-Holds 10 Seconds Limb Ataxia-Must be out of Proportion to Weakness Present: Absent Sensory (Use Pinprick to Test Arms/Legs/Trunk/Face): Normal Best Language (Describe Picture, Name Items): No Aphasia Dysarthria (Read Several Words): Normal Extinction and Inattention: No Abnormality Total Score: 0 Re-Evaluation - Re-Evaluation First Eval Re-Evaluation Time: 16:38 Comment: Discussed results with patient. Patient is agreeable to lumbar puncture procedure. She has had a back operation in the lower back, "clips in L4 & L5" per patient, but they did not fuse the vertebrae. Patient is not on blood thinners. Course/Dx - Course Course Of Treatment: This patient is a 73 year old F brought to ED with a chief complaint of sudden severe headache at [address] revealed No intracranial mass or hemorrhage is noted. Blood work obtained. In the ED course , patient received fluids, Reglan, and Benadryl. EKG at 1532 revealed NSR at 81 BPM. CXR revealed no active cardiopulmonary disease is noted. Discussed patient case with Dr. Barlow, neurologist, who recommended a lumbar puncture. Patient is agreeable to a lumbar puncture procedure. She has had back surgery ("clips" per patient) on L3-L5 but they did not fuse the vertebrae, so I attempted the lumbar puncture. However, I was unsuccessful, so I requested Dr. Ozuna from anesthesia to perform the procedure and ordered an x-ray of the lumbar spine. L- spine XR revealed multilevel degenerative disc disease. No compression fracture is noted. Patient will be signed out to Dr. Rose Trivedi at shift change at 1900 on 01/18/19 pending lumbar puncture results. - Differential Dx Differential Diagnoses Neuro: Positive: Intracranial Bleed, Migraine, Transient Ischemic Attack - Diagnoses Provider Diagnoses: Headache During the Visit The Following Alert/Code Occurred: Code Ryan - Physician Notifications Discussed Care Of Patient With: Jorge Barlow Time Discussed With Above Provider: 16:20 Instructed by Provider To: Other - Discussed patient case with Dr. Barlow, neurologist, who does not think the patient is experiencing a stroke. He recommends an LP. At 1716 discussed patient case with Dr. Denita Ozuna who will perform the LP. - Critical Care Time Critical Care Time: 30-74 min Discharge - Sign-Out/Discharge Documenting (check all that apply): Sign-Out Patient Signing out patient TO: Rose Trivedi - At shift change at 1900 on 01/18/19 Patient Received Moderate/Deep Sedation with Procedure: No - Discharge Plan Condition: Stable Referrals: Randell Bowman MD [Primary Care Provider] - - Billing Disposition and Condition Condition: STABLE - Attestation Statements Document Initiated by Scribe: Yes Documenting Scribe: Jean Pride Provider For Whom Scribe is Documenting (Include Credential): Floyd New MD Scribe Attestation: I, Jean Pride, scribed for Floyd New MD on 01/18/19 at 1855. Scribe Documentation Reviewed: Yes Provider Attestation: The documentation as recorded by the scribe, Jean Pride accurately reflects the service I personally performed and the decisions made by me, Floyd New MD Status of Scribe Document: Viewed
[2019-01-18 15:44] LABS: ABS Basophils 0.1 10^3/ul (0-0.2); ABS Eosinophils 0.1 10^3/ul (0-0.6); ABS Lymphocytes 1.5 10^3/ul (1.0-4.8); ABS Monocytes 0.6 10^3/ul (0-0.8); ABS Neutrophils 5.3 10^3/ul (1.5-7.7); Eosinophil % 0.8 %; Hematocrit 38 % (35-47); Hemoglobin 12.7 g/dL (12.0-16.0); Lymphocyte % 19.8 %; Mean Corpuscular HGB Conc 33 g/dL (31-36); Mean Corpuscular Hemoglobin 30 pg (27-31); Mean Corpuscular Volume 91 fL (80-97); Mean Platelet Volume 8.3 fL (7.4-10.4); Platelet Count 177 10^3/uL (150-450); Red Cell Distribution Width 13 % (10-15); White Blood Count 7.5 10^3/uL (3.5-10.8)
[2019-01-18 15:52] LABS: Activated Partial Thrombo Time 30.7 seconds (26.0-38.0); INR 1.01 (0.82-1.09)
[2019-01-18 16:02] LABS: Albumin 3.7 g/dL (3.2-5.2); Albumin/Globulin Ratio 1.5 (1-3); BUN/Creatinine Ratio 14.9 (8-20); Calcium 8.9 mg/dL (8.6-10.3); EGFR African American 77.7 (>60); EGFR Non-African American 64.2 (>60); Globulin 2.4 g/dL (2-4); HDL Cholesterol 35.6 mg/dL; Potassium 3.5 mmol/L (3.5-5.0); Total Bilirubin 0.5 mg/dL (0.2-1.0); Total Protein 6.1 g/dL (6.4-8.9)
[2019-01-18] MEDS ORDERED: diPHENhydraMINE IV* 50 MG/ML 1 ml VIAL (BENADRYL) IV ONE (16:24)
[2019-01-18] MEDS ORDERED: Metoclopramide IV* 5 MG/ML 2 ML VIAL IV ONE (16:24)
[2019-01-18] MEDS ORDERED: Lidocaine 1% INJ* 10 MG/ML 30 ML SDV ONE (16:40)
[2019-01-18 19:06] LABS: Body Fluid Source Cerebral Spinal
--- NOTE | 2019-01-18 19:12 | ED ---
Progress - Progress Note Progress Note: This patient was signed out from Dr. New to Dr. Trivedi upon shift change at 19 :00 01/18/19 pending CSF results. The CSF was negative. Upon re-eval the patient was comfortable in bed. The patient will be discharged and follow up with her PCP. The patient is agreeable with this plan. Re-Evaluation - Re-Evaluation First Eval Re-Evaluation Time: 16:38 Comment: Discussed results with patient. Patient is agreeable to lumbar puncture procedure. She has had a back operation in the lower back, "clips in L4 & L5" per patient, but they did not fuse the vertebrae. Patient is not on blood thinners. Course/Dx - Course Course Of Treatment: This patient was signed out from Dr. New to Dr. Trivedi upon shift change at 19:00 01/18/19 pending CSF results. The CSF was negative. Upon re-eval the patient was comfortable in bed. The patient will be discharged and follow up with her PCP. The patient is agreeable with this plan. - Diagnoses Provider Diagnoses: Headache During the Visit The Following Alert/Code Occurred: Code Ryan - Provider Notifications Time Discussed With Above Provider: 16:20 - Critical Care Time Critical Care Time: 30-74 min Discharge - Sign-Out/Discharge Documenting (check all that apply): Patient Departure - DC, Receiving Sign-Out Receiving patient FROM: Floyd New Patient Received Moderate/Deep Sedation with Procedure: No - Discharge Plan Condition: Stable Disposition: HOME Patient Education Materials: Acute Headache (DC) Referrals: Randell Bowman MD [Primary Care Provider] - 3 Days Additional Instructions: PLEASE RETURN TO THE ED IMMEDIATELY FOR WORSENING OR CONCERNING SYMPTOMS. - Billing Disposition and Condition Condition: STABLE Disposition: Home - Attestation Statements Document Initiated by Cuongibe: Yes Documenting Scribe: Yonatan Johnson Provider For Whom Poppy is Documenting (Include Credential): Rose Trivedi MD Scribe Attestation: Yonatan Vyas scribed for Rose Trivedi MD on 01/19/19 at 0509. Scribe Documentation Reviewed: Yes Provider Attestation: The documentation as recorded by the Yonatan henderson accurately reflects the service I personally performed and the decisions made by me, Rose Trivedi MD Status of Scribe Document: Viewed
[2019-01-18 19:23] LABS: CSF Glucose 82 mg/dL (40-70)
[2019-01-18 20:50] VITALS: BP 163/79
== END 2019-01-18 20:49 | disposition home or self-care (01) ==
LOC: ED 15:17
DX: R51 Headache (principal); M51.37 Other intervertebral disc degeneration, lumbosacral region; E78.2 Mixed hyperlipidemia; K21.9 Gastro-esophageal reflux disease without esophagitis; F41.9 Anxiety disorder, unspecified; F32.9 Major depressive disorder, single episode, unspecified; Z88.8 Allergy status to other drugs, medicaments and biological substances; Z79.899 Other long term (current) drug therapy
CPT/HCPCS: 36415; 70450; 71045; 72110; 80053; 80061; 82945; 83605; 84157; 84484; 85025; 85610; 85730; 87070; 87205; 89051; 93005; 96361; 96374; 96375; 99285; J1200; J2765

== ENCOUNTER 2019-08-05 07:30 | Inpatient (IN) | payer MEDICARE ==
[2019-09-01] MEDS ORDERED: Buffered Lidocaine 1% SYRIN* 1 ML/SYRINGE INTRADERM ONE (10:38)
--- OUTSIDE RECORDS SUMMARY | 2019-09-02 05:49 | XMS REPORT | Continuity of Care Document ---
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 Onset: spinal stenosis of lumbar region Low back pain Jorge Watson M.D. Onset: 07/30/2017 Convalescence after surgery Jorge Watson M.D. Onset: 08/20/2017 Localized, primary osteoarthritis of the pelvic Sindy Martinez M.D. Onset: 12/2017 region and thigh Localized, primary osteoarthritis Sindy Martinez M.D. Onset: 12/26/2017 Trochanteric bursitis Sindy Martinez M.D. Onset: 12/26/2017 Displacement of lumbar intervertebral disc Jorge Watson M.D. Onset: 2017 without myelopathy Social History Type Date Description Comments Sex Unknown ETOH Use Denies alcohol use Tobacco Use Start: Unknown Patient has never smoked Recreational Drug Use Denies Drug Use Smoking Status Reviewed: 07/28/19 Patient has never smoked Exercise Type/Frequency Exercises sporadically Allergies, Adverse Reactions, Alerts Active Allergies Reaction Severity Comments Date Cymbalta Anaphylaxis Severe 07/20/2017 Sucralfate 07/20/2017 Inactive Allergies NKDA 06/26/2017 Medications Active Medications SIG Qnty Indications Ordering Date Provider Gabapentin 1 by mouth 90caps M54.5 Jorge Watson 07/30/2017 300mg Capsules three times a M.D. day Pantoprazole Sodium 1 by mouth Unknown 40mg every day Solution Rec Bupropion HCL ER (XL) 1 by mouth Unknown 300mg every day Tablets ER 24HR Citalopram Hydrobromide 1 by mouth Unknown 20mg every day Tablets Vesicare 1 by mouth Unknown 5mg Tablets every day Levocetirizine 1 every day as Unknown Dihydrochloride needed 5mg Tablets Sulfamethoxazole/Trimeth 1 by mouth Unknown oprim DS twice a day 800-160mg Tablets Medications Administered in Office Medication SIG Qnty Indications Ordering Provider Date Depomedrol 40MG GOLDEN Connors 09/23/2018 Injection Depomedrol 40MG Sindy Martinez M.D. 12/26/2017 Injection Immunizations Description No Information Available Vital Signs Date Vital Result Comment 07/28/2019 3:41pm Height 63 inches 5'3" Weight 195.00 lb Heart Rate 100 /min BP Systolic 126 mmHg BP Diastolic 78 mmHg Body Temperature 98.5 F Pain Level 4 left buttock down left leg BMI (Body Mass Index) 34.5 kg/m2 06/25/2019 1:23pm Height 63 inches 5'3" Weight 192.00 lb Heart Rate 82 /min BP Systolic 140 mmHg BP Diastolic 92 mmHg Pain Level 10 Left lower back buttock and leg BMI (Body Mass Index) 34.0 kg/m2 Results Test Acquired Date Facility Test Result H/L Range Note CBC No Diff 07/22/2019 [facility] White Blood 6.4 10^3/uL Normal 3.5-10.[address] [place] [address] [phone] Red Blood Count 4.84 10^6/uL Normal 3.70-4.87 Hemoglobin 14.7 g/dL Normal 12.0-16.0 Hematocrit 44 % Normal 35-47 Mean Corpuscular Volume 91 fL Normal 80-97 Mean Corpuscular Hemoglobin 30 pg Normal 27-31 Mean Corpuscular HGB Conc 33 g/dL Normal 31-36 Red Cell Distribution Width 13 % Normal 10-15 Platelet Count 202 10^3/uL Normal 150-450 Mean Platelet Volume 8.6 fL Normal 7.4-10.4 Urinalysis Profile 07/22/2019 [facility] Urine Color Yellow [address] [place] [address] [phone] Urine Appearance Cloudy Urine Specific [place] 1.026 Normal 1.010-1.030 Urine pH 5.0 Normal 5-9 Urine Urobilinogen Negative Negative Urine Ketones Negative Negative Urine Protein Negative Negative Urine Leukocytes 2+ Abnormal Negative Urine Blood Negative Negative Urine Nitrite Negative Negative Urine Bilirubin Negative Negative Urine Glucose Negative Negative Urine White Blood Cell 1+(6-10/hpf) Abnormal Absent Urine Red Blood Cell Trace(0-2/hpf) Absent Urine Bacteria 1+ Abnormal Absent Urine Squamous Epithelial Cell Present Abnormal Absent Inr/Protime 07/22/2019 [facility] Inr 0.96 Normal 0.82-1.09 [address] [place] [address] [phone] Laboratory test 07/22/2019 [facility] Partial 33.7 Normal 26.0 -38.0 finding [address] [facility] [place] [address] Time PTT [phone] Basic Metabolic 07/22/2019 [facility] Sodium 139 mmol/L Normal 135-145 Panel [address] [place] [address] [phone] Potassium 3.9 mmol/L Normal 3.5-5.0 Chloride 103 mmol/L Normal 101-111 Co2 Carbon Dioxide 30 mmol/L Normal 22-32 Anion Gap 6 mmol/L Normal 2-11 Glucose 99 mg/dL Normal 70-100 Blood Urea Nitrogen 18 mg/dL Normal 6-24 Creatinine 0.79 mg/dL Normal 0.51-0.95 BUN/Creatinine Ratio 22.8 High 8-20 Calcium 9.1 mg/dL Normal 8.6-10.3 Egfr Non- 71.7 >60 Egfr 86.8 >60 2 Type & Screen 07/22/2019 [facility] Antibody Screen NEGATIVE [address] [place] [address] [phone] Patient Blood Type AB Negative Urine Culture And 07/22/2019 [facility] Urine Culture SEE RESULT [address] [place] [address] [phone] 1 Standard intensity warfarin therapeutic range: 2.0-3.0 High intensity warfarin therapeutic range: 2.5-3.5 2 Because ethnic data is not always readily available, this report includes an eGFR for both -Americans and non- Americans. The National Kidney Disease Education Program (NKDEP) does not endorse the use of the MDRD equation for patients that are not between the ages of 18 and 70, are , have extremes of body size, muscle mass, or nutritional status, or are non- or non-. According to the National Kidney Foundation, irrespective of diagnosis, the stage of the disease is based on the level of kidney function: Stage Description GFR(mL/min/1.73 m(2)) 1 Kidney damage with normal or decreased GFR 90 2 Kidney damage with mild decrease in GFR 60-89 3 Moderate decrease in GFR 30-59 4 Severe decrease in GFR 15-29 5 Kidney failure <15 (or dialysis) 3 SEE RESULT BELOW Name: ISREAL ARCE : [address]: Marizol Sandoval MD Acct: [id number] Unit: [id number] AGE: 73 Location: [facility] Re07/22/19 SEX: F Status: REG REF SPEC: [id number] KEN: 07/22/19-160 [facility] DR: Marizol Sandoval MD REQ: [id number] RECD: 07/22/19 STATUS: COMP _ SOURCE: URINE SPDESC: ORDERED: Urine Culture Procedure Result Reported Site Urine Culture Final 07/24/19- 0953 ML Organism 1 [facility]LEBSIELLA PNEUMONIAE [place] Count 50-75,000 (Many) CFU/ML 1. KLEBSIELLA PNEUMONIAE [facility] RX --------- ------ Ampicillin >=32 R Cefazolin <=4 S Cefepime <=1 S Ceftriaxone <=1 S Ciprofloxacin <=0.25 S Gentamicin <=1 S Levofloxacin <=0.12 S Meropenem <=0.25 S Nitrofurantoin 64 I Tetracycline <=1 S Pipercillin/Tazobactam <=4 S Trimethoprim/Sulfamethoxazole <=20 S Amoxicillin/Clavulanic Acid 8 S Aztreonam <=1 S Contact the Microbiology Department for any additional antibiotic reporting. * ML - Main Lab . END OF REPORT DEPARTMENT OF PATHOLOGY, [address] [place] [address] Addi Peralta M.D. Director [facility] # [id number] Procedures Date Code Description Status 05/28/2019 67534 Nerve Conduction 03-04 Studies Completed 05/28/2019 49156 Needle Electromyography Complete, Five Or More Muscles Completed Studied Medical Devices Description No Information Available Encounters Type Date Location Provider Dx Diagnosis Office Visit 06/25/2019 [facility] M51.26 Other intervertebral 1:00p [facility] Sandoavl MD disc displacement, lumbar region M51.36 Other intervertebral disc degeneration, lumbar region M43.16 Spondylolisthesis, lumbar region M41.9 Scoliosis, unspecified Office 06/03/2019 [facility] M51.26 Other Visit 3:30p [facility] Sandoval MD intervertebral disc displacement, lumbar region M51.37 Other intervertebral disc degeneration, lumbosacral region M43.16 Spondylolisthesis, lumbar region M41.9 Scoliosis, unspecified Office Visit 05/26/2019 Hauulaantonia Burk, M51.26 Other 2:15p [facility] intervertebral disc [place] displacement, lumbar region Office Visit 05/14/2019 [facility] M51.37 Other 9:30a [facility] Sandoval MD intervertebral disc degeneration, lumbosacral region Assessments Date Code Description Provider 07/04/2019 M51.26 Other intervertebral disc displacement, Marizol Sandoval MD lumbar region 07/04/2019 M51.36 Other intervertebral disc degeneration, Marizol Sandoval MD lumbar region 07/04/2019 M43.16 Spondylolisthesis, lumbar region Marizol Sandoval MD 06/25/2019 M51.26 Other intervertebral disc displacement, Marizol Sandoval MD lumbar region 06/25/2019 M51.36 Other intervertebral disc degeneration, Marizol Sandoval MD lumbar region 06/25/2019 M43.16 Spondylolisthesis, lumbar region Marizol Sandoval MD 06/25/2019 M41.9 Scoliosis, unspecified Marizol Sandoval MD 06/03/2019 M51.26 Other intervertebral disc displacement, Marizol Sandoval MD lumbar region 06/03/2019 M51.37 Other intervertebral disc degeneration, Marizol Sandoval MD lumbosacral region 06/03/2019 M43.16 Spondylolisthesis, lumbar region Marizol Sandoval MD 06/03/2019 M41.9 Scoliosis, unspecified Marizol Sandoval MD 05/28/2019 M51.36 Other intervertebral disc degeneration, Tamar Villalpando M.D. lumbar region 05/26/2019 M51.26 Other intervertebral disc displacement, Samuel Burk M.D. lumbar region 05/14/2019 M51.37 Other intervertebral disc degeneration, Marizol Sandoval MD lumbosacral region Plan of Treatment Future Appointment(s):09/12/2019 11:00 am - Marizol Sandoval MD at [facility]08/13/2019 12:30 pm - Marizol Sandoval MD at [facility]08/05/2019 7:30 am - Marizol Sandoval MD at [facility] Functional Status Description No Information Available Mental Status Description No Information Available Referrals Refer to Reason for Referral Status Appt Date Sindy Martinez MD Sent 05/26/[address] [place] [address] [place] [address] [phone]
[2019-09-02] MEDS ORDERED: Lactated Ringers 1000 ML Bag* 1,000 ML IV SCH (06:00)
[2019-09-02] MEDS ORDERED: Buffered Lidocaine 1% SYRIN* 1 ML/SYRINGE INTRADERM ONE (06:48)
[2019-09-02] MEDS ORDERED: ceFAZolin 2 GM in NS PREMIX(*) 2 GM/100 ML BAG IVPB ONE ×2 (06:48→12:09)
[2019-09-02] MEDS ORDERED: Bupivacaine 0.5% W/EPI SDV* 10 ML VIAL INJ ONE (07:10)
[2019-09-02] MEDS ORDERED: Bacitracin INJECTION* 50,000 UNITS ONE (07:10)
[2019-09-02] MEDS ORDERED: Rocuronium* 10 MG/ML VIAL ONE ×2 (07:30→14:14)
[2019-09-02] MEDS ORDERED: Phenylephrine 1% NASAL* 15 ML BOT ONE (07:30)
[2019-09-02] MEDS ORDERED: Propofol* 10 MG/ML 20 ML BTL ONE ×2 (07:30→14:14)
[2019-09-02] MEDS ORDERED: Remifentanil* 2 MG VIAL ONE ×2 (07:31→10:24)
[2019-09-02] MEDS ORDERED: Naloxone* 0.4 MG/ML 1 ML VIAL IV PRN (09:19)
[2019-09-02] MEDS ORDERED: PROCHLORPERAZINE INJ 5 MG/ML 2 ML VIAL IV PRN (09:19)
[2019-09-02] MEDS ORDERED: Ondansetron INJ* 2 MG/ML VIAL IV PRN (09:19)
[2019-09-02] MEDS ORDERED: Metoclopramide IV* 5 MG/ML 2 ML VIAL IV PRN (09:19)
[2019-09-02] MEDS ORDERED: Scopolamine 1.5 mg* PATCH TRANSDERM PRN (09:19)
[2019-09-02] MEDS ORDERED: DiMENhydriNATE IV* 50 MG/ML VIAL IV PUSH PRN (09:19)
[2019-09-02] MEDS ORDERED: Ondansetron INJ* 2 MG/ML VIAL ONE (12:55)
[2019-09-02] MEDS ORDERED: Dexamethasone IV* 4 MG/ML 1 ML (4 MG) ONE ×2 (12:55→13:31)
[2019-09-02] MEDS: HYDROmorphone INJ1* 1 MG/ML SYRINGE IV PRN ×5 (13:06→13:24)
[2019-09-02] MEDS ORDERED: HYDROmorphone INJ1* 1 MG/ML SYRINGE ONE (13:06)
[2019-09-02] MEDS ORDERED: EPINEPHrine,Rac 2.25% NEB.SOL* 0.5 ML ONE (13:34)
[2019-09-02] MEDS ORDERED: diPHENhydraMINE IV* 50 MG/ML 1 ml VIAL (BENADRYL) ONE (13:34)
[2019-09-02] MEDS ORDERED: Midazolam* 1 MG/ML 5 ML VIAL (5 MG) IV SLOW PU ONE (13:35)
[2019-09-02] MEDS ORDERED: Midazolam* 1 MG/ML 5 ML VIAL (5 MG) ONE ×2 (13:36→14:06)
[2019-09-02] MEDS ORDERED: Succinylcholine* 20 MG/ML 10 ML VIAL ONE (13:38)
[2019-09-02] MEDS ORDERED: Lidocaine 2% PF * 5 ML VIAL ONE (14:14)
[2019-09-02] MEDS ORDERED: Propofol* 100 ML ONE (14:18)
[2019-09-02] MEDS ORDERED: Propofol* 100 ML IV SCH (16:00)
[2019-09-02 16:23] LABS: ABS Lymphocytes 0.5 10^3/ul (1.0-4.8); ABS Monocytes 0.4 10^3/ul (0-0.8); Hematocrit 38 % (35-47); Hemoglobin 12.9 g/dL (12.0-16.0); Lymphocyte % 3.6 %; Mean Corpuscular HGB Conc 34 g/dL (31-36); Mean Corpuscular Hemoglobin 30 pg (27-31); Mean Corpuscular Volume 90 fL (80-97); Mean Platelet Volume 8.5 fL (7.4-10.4); Nucleated Red Blood Cells % 0.1; Platelet Count 158 10^3/uL (150-450); Red Blood Count 4.25 10^6 /uL (3.70-4.87); Red Cell Distribution Width 14 % (10-15); White Blood Count 13.9 10^3/uL (3.5-10.8)
--- NOTE | 2019-09-02 16:26 | OP ---
Operative Report - Blank - Operative Report Date of Operation: 09/02/19 Note: Bronchoscopy - Procedure Note Indication: tracheal tear Diagnosis: pneumomediastinum Performed by: Eduard Consent: Informed Conset placed in bedside chart Risk/Benefits of procedure explained. [place] Protocol: Time-out was performed and the correct patient and site were verified Prior labs/imaging reviewed before procedure. Patient oxygenated with 100% Fi02, placed on VC ventilation Propofol used for sedation and analgesia Scope inserted via ETT tube through adapter. FINDINGS - Old blood in the airway. No visualized flap or false lumen. Scope not passed beyond dori. Specimens:None EBL: none significant Complications: No immediate complications during the procedure
[2019-09-02 16:34] LABS: Albumin/Globulin Ratio 1.7 (1-3); BUN/Creatinine Ratio 14.9 (8-20); Calcium 8.6 mg/dL (8.6-10.3); EGFR African American 70.8 (>60); EGFR Non-African American 58.5 (>60); Globulin 2.4 g/dL (2-4); Magnesium 1.7 mg/dL (1.9-2.7); Phosphorus 2.7 mg/dL (2.5-5.0); Potassium 4.2 mmol/L (3.5-5.0); Total Bilirubin 0.7 mg/dL (0.2-1.0); Total Protein 6.4 g/dL (6.4-8.9)
[2019-09-02 16:55] LABS: INR 1.03 (0.82-1.09)
[2019-09-02] MEDS ORDERED: Chlorhexidine MOUTHWASH 0.12%* 15 ML UDC TOPICAL SCH (17:00)
[2019-09-02] MEDS ORDERED: Pantoprazole IV* 40 MG IV SCH (18:00)
[2019-09-02 18:29] VITALS: BP 150/98
--- NOTE | 2019-09-02 20:31 | CONS ---
CC: Marizol Sandoval MD; Randell Bowman MD * CONSULTATION REPORT: DATE OF CONSULT: 09/02/19 REQUESTING PHYSICIAN: Marizol Sandoval MD REASON FOR CONSULTATION: Possible tracheal injury. HISTORY OF PRESENT ILLNESS: Ms. Torres is a 74-year-old female who underwent elective spinal surgery today and postoperatively developed massive subcutaneous emphysema in the neck and face while being observed in the recovery room. She was emergently reintubated and transferred to the intensive care unit. The patient was stabilized by Anesthesia and Dr. Chapa in the ICU. She underwent CT scan neck and chest and was noted to have an abrupt deviation of the tracheal contour at the tip of the endotracheal tube. Based on the imaging, there was concern that there may be tracheal injury. CT also revealed a large amount of subcutaneous emphysema of the chest wall, neck, and in the mediastinum and ectasia of the ascending thoracic aorta. ENT was not available to evaluate the patient and Dr. Chapa did perform a limited fiberoptic bronchoscopy. He was unable to diagnose the injury. Dr. Sandoval asked me to consult for assistance in management. PAST MEDICAL HISTORY: Significant for gastroesophageal reflux disease, anxiety , and depression. PAST SURGICAL HISTORY: Significant for cholecystectomy, hysterectomy, previous cervical spine and back surgeries. MEDICATIONS: At home were: 1. Gabapentin. 2. Pantoprazole. 3. Bupropion. 4. Citalopram. 5. VESIcare. 6. Levocetirizine. 7. Bactrim. ALLERGIES: CYMBALTA and SUCRALFATE. FAMILY HISTORY: She has reported family history on the chart of cancer, diabetes, and heart disease. SOCIAL HISTORY: She is retired. She does not smoke, does not use alcohol or drugs. PHYSICAL EXAM: She is 5 feet 4 inches, 199 pounds with a BMI of 34. She is intubated in the intensive care unit bed, sedated. She has extensive subcutaneous emphysema of the chest, neck, and face. ET tube is in place. She has bilateral equal breath sounds. Heart is regular; S1, S2. DIAGNOSTIC STUDIES: CT images of the neck and chest were reviewed and findings as above. IMPRESSION: A 74-year-old female status post elective back surgery with presumed iatrogenic tracheolaryngeal injury. As per the family, the patient did have history of difficult intubations in the past. PLAN/RECOMMENDATION: I discussed with Dr. Sandoval, the family, and Dr. Spann that this is beyond the scope of my care and without the availability of ENT or Thoracic Surgery, my recommendation is that the patient to be transferred to a tertiary care center for further evaluation and treatment. The patient's family was understanding and did agree. [id number]/[facility] #: [id number] MTDD
--- NOTE | 2019-09-02 20:39 | HP ---
HISTORY AND PHYSICAL: DATE OF ADMISSION: 09/02/19 CHIEF COMPLAINT: Shortness of breath. HISTORY OF PRESENT ILLNESS: This is a 74-year-old female with hyperlipidemia, GERD, depression who presented for elective L2-L3 lumbar fusion today. During the procedure, the patient had a difficult intubation and requiring multiple attempts. After the procedure, the patient was successfully extubated and was taken to PACU. In PACU, the patient decompensated, became hypoxemic and had diffuse subcu edema from the level of her breasts up to the her head and neck. Anesthesia reintubated the patient and her hypoxia resolved. She was immediately sent for a CAT scan of the neck and chest, which showed diffuse subcu emphysema from extending from the mediastinum into the head and neck. There was suspicion for a tracheal tear and a bronchoscopy was performed in the ICU, which did not reveal any visible lacerations. There was old blood in the airway. Our facility did not have Thoracic Surgery, and ENT was not available. She was taken to the ICU and remained intubated. She was unable to provide history secondary to intubation and sedation. History was obtained from the chart as well as speaking to Neurosurgery, Anesthesia and the family. PAST MEDICAL HISTORY: 1. Hyperlipidemia. 2. GERD. 3. Depression. PAST SURGICAL HISTORY: 1. Hysterectomy. 2. Cholecystectomy. 3. Lumbar fusion and revision today. MEDICATIONS: Home medications: 1. VESIcare. 2. Celexa. 3. Protonix. 4. Wellbutrin. 5. Gabapentin. 6. Xyzal. Current medications: 1. Peridex mouthwash 2. Dilaudid p.r.n. 3. LR at 125. 4. Propofol drip. ALLERGIES: To SUCRALFATE. FAMILY HISTORY: Family history of hypertension, diabetes, and cardiac disease. SOCIAL HISTORY: No drugs, alcohol, or tobacco. She lives at home with her . TELEMETRY: Normal sinus rhythm. INFUSIONS: Propofol drip. REVIEW OF SYSTEMS: Unable secondary to intubation and sedation. PHYSICAL EXAMINATION GEN: She is intubated and sedated, obese. VITAL SIGNS: Temp 99.9, heart rate 75, respirations 16, pulse ox 95%, blood pressure 136/83, end-tidal CO2 37. Vent, she is on volume control of 450 tidal volume, respiratory rate of 14, FiO2 of 40%, PEEP of 5. HEENT: NC/AT. PERRL. NECK AND CHEST: She has diffuse subcu emphysema with crackles to the level of the upper neck. PULMONARY: CTA, no wheezing, rhonchi, or rales. CARDIOVASCULAR: S1, S2. ABDOMEN: Soft, nontender. EXTREMITIES: No clubbing, cyanosis, or edema. NEURO: Unresponsive. LABORATORY DATA: White count 13.9, hemoglobin 12.9, platelet count 158. Coags and chemistry pending. INR 1.03. Sodium 137, potassium 4.2, chloride 103, carbon dioxide 29, anion gap 5, BUN 14, creatinine 0.94, glucose 139. Lactic acid 1.2. Calcium 8.6. Phosphorus 2.7. Magnesium 1.7. Total bilirubin 0.7, AST 22, ALT 14, alk phos 63. BNP 40. Total protein 6.4, albumin 4.0, globulin 2.4. IMAGING: CT neck without contrast, impression: 1. Extensive subcu emphysema along the face, neck, and chest wall as above. Pneumomediastinum is also present. There is an abrupt deviation of the tracheal contour at the tip of the endotracheal tube, just superior to the aortic arch, this may be the site of tracheal injury. 2. Ascending aorta is ectatic. 3. Enlarged poorly characterized right lobe of the thyroid. CT chest without contrast, there is a large amount of subcutaneous emphysema in the chest wall, neck, and mediastinum. Findings are suggestive for defect in the trachea at the level of the endotracheal tube as described. Consider bronchoscopy for further evaluation. Mild bilateral lobe infiltrates consistent with atelectasis or pneumonia, ectasia of the ascending aorta. IMPRESSION: This is a 74-year-old female with hypertension, gastroesophageal reflux disease, depression who presented for an elective lumbar fusion, which was complicated by tracheal tear and respiratory failure. PLAN: 1.) Neuro, maintain adequate sedation. 2.) Cardiovascular, BP stable. 3.) Respiratory, acute respiratory failure with hypoxia secondary to tracheal tear from traumatic intubation. Continue with ventilator. Currently, peak pressures are adequate and the patient is not hemodynamically compromised. Due to the fact that this facility does not have ENT and Thoracic Surgery available and given the findings of the CT of her chest and neck, we will pursue transfer to a higher level of care. 4.) ID, pneumomediastinum. We will give empiric ceftriaxone to prevent mediastinitis. Follow up cultures. GI, n.p.o. for now. We would avoid placing NG tube given possible upper airway laceration. 5.) Renal, monitor Is and Os, monitor electrolytes. 6.) Heme, monitor CBC. 7.) Endocrine, monitor fingersticks. 8.) Musculoskeletal: Pressure ulcer prophylaxis, bedrest. Wounds none. Nutrition, n.p.o. DVT prophylaxis, heparin subcu. GI prophylaxis, PPI. Central line, none. Arterial catheter, none. French catheter in place. DISPOSITION: Admits to the ICU. Plan for transfer to high level of care. The patient's clinical status guarded. Code status, full. TOTAL CRITICAL CARE TIME: 45 minutes. [id number]/[facility] #: [id number] MTDD
[2019-09-02] MEDS ORDERED: Heparin VIAL(*) 5000 UNITS/ML VIAL (FIVE THOUSAND) SUBCUT SCH (21:00)
--- NOTE | 2019-09-02 22:20 | DS ---
DISCHARGE SUMMARY: DATE OF ADMISSION: 09/02/19 DATE OF DISCHARGE: 09/02/19 ATTENDING PHYSICIAN: Dr. Gil Chapa. PRIMARY CARE PHYSICIAN: Dr. Sandoval. ADMISSION DIAGNOSES: Shortness of breath. DISCHARGE DIAGNOSES: 1. Acute hypoxic respiratory failure. 2. Tracheal tear. 3. Subcu emphysema. 4. Pneumomediastinum. SECONDARY DIAGNOSES: 1. Lumbar disk herniation. 2. Gastroesophageal reflux disease. 3. Depression. 4. Hyperlipidemia. CONSULTATIONS: Neurosurgery. PROCEDURES: Endotracheal intubation by Anesthesia, lumbar fusion by Neurosurgery and bronchoscopy by Critical Care. HISTORY OF PRESENT ILLNESS: This is a 74-year-old female with hyperlipidemia, GERD, and depression who presented for an elective lumbar fusion, whose course was complicated by tracheal tear, acute hypoxic respiratory failure, and pneumomediastinum. The patient was reintubated and taken to ICU. Bronchoscopy did not show any visible tracheal tear, however, tracheal tear was visualized on CT of the neck and chest. The patient was discharged to higher level of care for ENT and thoracic surgery evaluations. PHYSICAL EXAMINATION AT DISCHARGE: Temperature 99.9, heart rate 75, respiratory rate 16, pulse ox 95%, blood pressure 136/83, end-tidal 37. Gio is an obese, elderly female intubated, sedated. HEENT: She has severe subcu emphysema from the level of her breast through her neck, head and face. Pulmonary: CTA. No wheezing, rhonchi or rales. Cardiovascular: S1, S2, no murmur. Gastrointestinal: Abdomen is soft and nontender. Extremities: No clubbing, cyanosis or edema. Neuro: Unresponsive. LABORATORY TEST PENDING AT DISCHARGE: None. IMMUNIZATION GIVEN DURING ADMISSION: None. DISCHARGE DISPOSITION: To higher level of care. DIET: N.P.O. DISCHARGE MEDICATIONS: Asiya see medication reconciliation. DISCHARGE INSTRUCTIONS: Please follow up with the doctors at the receiving facility. FOLLOW UP APPOINTMENTS: None. [id number]/[facility] #: [id number] MARJ
--- NOTE | 2019-09-02 22:42 | PN ---
Progress Note - Progress Note Date of Service: 09/02/19 Note: Postop Note, Delayed entry. Patient tolerated procedure very well. Was seen in recovery after extubation. Patient was very comfortable, no respiratory difficulties. She was AAOx3. OCHOA, CN II-XII grossly intact Motor 4-5/5 all extremities Sensory grossly intact to light touch. Pain was under control and VSS. On return to recovery prior the discussion with the family, patient was noted to have SQ emphysema. Patient was intubated by Dr Parker and Chest XR was obtained. VSS. Dr Kolb was contacted by Dr Rich and recommended continue support with endotracheal tube. Discussed with Dr Kolb who kindly contacted Dr Chapa in ICU. Discussed in extend several times with patient's and son regarding patient's condition and family was updated regarding events and imaging findings. Discussed with family with Dr Parker as well. Patient was transferred to ICU and CT of chest and neck revealed SQ emphysema and mild pneumomediastinum. Dr Teixeira kindly consulted on patient and after discussing with ENT and Dr Chapa, and after Dr Chapa kindly performed bronchoscopy, without identification of distinct injury, and because ENT not physically available at present, it was recommended to transfer the patient to [facility] for consultation with Thoracic surgery. Dr Davidson accepted the patient. Contacted [facility] after finishing an other emergent surgery and was updated regarding patient's condition by senior Thoracic Surgery resident in house. Patient remained stable with minimal ventilation settings without progression of SQ emphysema. Plan to perform bronchoscopy and laryngoscopy in am by Thoracic Surgery team and consider extubation if findings are favorable. Otilia Sandoval MD
--- NOTE | 2019-09-03 02:01 | OP ---
DATE OF OPERATION: 09/02/19 - ROOM #ICU-07 DATE OF : 49 SURGEON: Marizol Sandoval MD SUPERVISOR WINTER: FRANCISCA Roa ANESTHESIA: General. PRE-OP DIAGNOSES: 1. Degenerative disk disease. 2. Left L2-3 herniated nucleus pulposus. 3. Adjacent level disease with spondylolisthesis. POST-OP DIAGNOSES: 1. Degenerative disk disease. 2. Left L2-3 herniated nucleus pulposus. 3. Adjacent level disease with spondylolisthesis. OPERATIVE PROCEDURE: The patient underwent a left L2-3 redo MIS TLIF with PEEK interbody cage, local bone graft, iliac crest bone graft from a separate incision, DBX, with expandable cage and pedicle screws L2 and L3, with intraoperative electrophysiological monitoring and intraoperative navigation. INDICATIONS: The patient is a very pleasant 74-year-old female, who has a history of previous lumbar surgeries. The patient had undergone an procedure at L3-4 and L4-5, underwent L4-5 laminectomy and diskectomy by Dr. Watson as well as L2-3 laminectomy. The patient presented with severe back pain radiating to the left lower extremity. The patient had MRI findings consistent with adjacent level disease with left L2-3 disk herniation, stenosis , as well as subluxation. After failing conservative treatment modalities, she was offered the option of surgical intervention. After explaining to the patient in detail and to her and her son all expectations, limitations, and possible complications of the procedure with complications including, but not limited to, bleeding, infection, risk of injury to adjacent structures, coma , paralysis, , need for additional procedures, anesthesia risks, stroke, blindness, cancer, instability, hardware failure, adjacent level disease, pseudoarthrosis, spinal fluid leak, loss of bladder or bowel control, postoperative hematoma, need for prolonged ICU stay, prolonged rehabilitation, prolonged hospitalization, deep venous thrombosis, the patient was agreeable to proceed with surgery and informed consent was obtained. The patient understood that her condition may not improve and in fact may get worse after surgery and that she may need to have additional procedures in the future. She also understood that operative plan may be modified according to intraoperative findings and conditions and that the case may be abandoned or done in more than 1 stages. She also understood that she may require prolonged hospitalization, prolonged rehabilitation, or prolonged ICU stay. ESTIMATED BLOOD LOSS: 20 cc. COMPLICATIONS: None. DESCRIPTION OF PROCEDURE: The patient was brought to the operating room and was placed under general anesthesia by the anesthesia team. She was carefully positioned prone on the Aamir table and all bony prominences were meticulously padded. Her skin was prepped and draped in the standard fashion. After appropriate surgical pause and patient identification, the previous midline incision was identified on the skin. A small incision over the right iliac crest was performed with a #10 surgical blade after infiltrating the skin with local anesthetic. A Corex needle was placed with the assistance of Raising [employer] needle and iliac crest bone graft was harvested to be used for the arthrodesis part of the procedure. The navigation star was then secured in place into the same incision. Intraoperative O-arm imaging was obtained and the patient's data was transferred to the navigation platform. Under stereotactic navigation, the trajectories of the pedicles were marked on the skin as well as the trajectory of the tubular retractor. Two small paramedian incisions were marked on the skin and the skin was infiltrated with local anesthetic. The incision was performed with #10 surgical blade and it was carried down through the subcutaneous tissue with a Bovie cautery. Under stereotactic navigation with the use of high-speed drill and awl-tip tap, the pedicles were cannulated and Medtronic Voyager ATS screws were inserted. Of note, the pedicles of L2 were extremely small and 4.5 x 40 mm screws were placed at L2 level while 5.5 x 50 mm screws were placed on the L3 level. Then, attention was brought to perform a separate fascial incision and with the assistance of stereotactic navigation, the MET[employer] tubular retractor system was introduced into the field over a series of dilators. The intraoperative microscope was brought into the field and the remaining of the lamina as well as the medial facet and the pars over the L2-3 left facet was identified and carefully dissected with the assistance of curettes and Bovie cautery. Significant amount of scar tissue was encountered as expected. The medial border of the bony edges was carefully dissected free with series of curettes and high-speed drill was used to fashion a medial facetectomy as well as extended laminotomy and perform dissection of the pars. This was completed with use of Kerrison punches. Thecal sac was identified as well as significant scar tissue from the previous surgical intervention. After meticulous dissection of the scar tissue, this was dissected free from the medial border of the dura and the left L3 nerve root was readily identified and foraminotomy was performed. A large disk herniation was identified as expected from preoperative imaging and after incising the annulus fibrosus and the posterior longitudinal ligament, a diskectomy was performed. In order to obtain access into the intervertebral disk space, a small posterior osteotomy was performed with use of high-speed drill. Then, the disk space was prepared for the arthrodesis part of the procedure with use of high-speed drill, dilators, pituitary rongeurs, and curettes. Locally harvested bone graft from the facetectomy and laminectomy part of the procedure was saved to be used later in the arthrodesis part of the procedure. The thecal sac and the nerve root were gently retracted medially and a [employer] Elevate expandable cage was inserted after being filled with a mixture of local bone graft, iliac crest bone graft, and DBX. Prior to insertion of the cage, the disk space was also filled with the same material. After expanding the interbody cage, the forestry conservation worker was gently removed, and after checking for hemostasis and after copious irrigation and meticulous inspection, the tubular retractor was gently removed and the dorsal fascia was approximated with 0 interrupted Vicryl sutures. Then, attention was brought in order to insert 2 cobalt chrome rods through the same incisions. O-arm imaging was obtained and confirmed excellent placement of all hardware. With some medial trajectories of the L2 pedicle screws, it was elected to redirect the pedicle screws at L2 level. These were gently removed and with the assistance of stereotactic navigation, these were redirected in the optimal trajectory. Additional, O-arm imaging was obtained, which confirmed excellent placement of all hardware. The cobalt chrome rods were placed and secured in place with screw head caps. After final tightening of the screw head caps, the indra inserters as well as the extenders of the pedicle screws were removed as well as the navigation star. The wound was then copiously irrigated, and after confirmation of meticulous hemostasis and meticulous inspection, the wounds were closed by layers with 0 interrupted Vicryl sutures for the dorsal fascia defect, 2- 0 inverted interrupted Vicryl sutures for the subcutaneous tissue, and Dermabond for the skin. At the end of the procedure, all counts were reported to be correct. The patient remained hemodynamically stable throughout the case. Intraoperative electrophysiological monitoring remained stable throughout the case. The patient was then turned supine, was extubated, and was transferred to Recovery in excellent condition. [id number]/[facility] #: [id number] MARJ
[2019-09-03] MEDS ORDERED: Heparin VIAL(*) 5000 UNITS/ML VIAL (FIVE THOUSAND) SUBCUT SCH (09:00)
--- NOTE | 2019-09-04 12:28 | DS ---
DISCHARGE SUMMARY: DATE OF ADMISSION: DATE OF DISCHARGE: 09/02/19 ADDENDUM: DISCHARGE DISPOSITION: To higher level of care, [facility] in [place]. CONDITION: Critical. [id number]/[facility] #: [id number]
== END 2019-09-02 19:30 | disposition short-term general hospital (02) | DRG 459 ==
LOC: AA 09-02 05:45 → ICU 09-02 15:14
PROVIDERS: ADMIT Neurological Surgery; ATTEND Internal Medicine
PROC: 0QB20ZZ Excision of Right Pelvic Bone, Open Approach (ICD-10-PCS; 2019-09-02)
PROC: 0ST20ZZ Resection of Lumbar Vertebral Disc, Open Approach (ICD-10-PCS; 2019-09-02)
PROC: 0BH17EZ Insertion of Endotracheal Airway into Trachea, Via Natural or Artificial Opening (ICD-10-PCS; 2019-09-02)
PROC: 5A1935Z Respiratory Ventilation, Less than 24 Consecutive Hours (ICD-10-PCS; 2019-09-02)
PROC: 0SG00AJ Fusion of Lumbar Vertebral Joint with Interbody Fusion Device, Posterior Approach, Anterior Column, Open Approach (ICD-10-PCS; principal; 2019-09-02 07:30)
DX: M51.26 Other intervertebral disc displacement, lumbar region (principal); J96.01 Acute respiratory failure with hypoxia; S11.021A Laceration without foreign body of trachea, initial encounter; M43.16 Spondylolisthesis, lumbar region; M51.36 Other intervertebral disc degeneration, lumbar region; T81.82XA Emphysema (subcutaneous) resulting from a procedure, initial encounter; Y84.8 Other medical procedures as the cause of abnormal reaction of the patient, or of later complication, without mention of misadventure at the time of the procedure; Y82.8 Other medical devices associated with adverse incidents; Y92.238 Other place in hospital as the place of occurrence of the external cause; E78.5 Hyperlipidemia, unspecified; K21.9 Gastro-esophageal reflux disease without esophagitis; E66.9 Obesity, unspecified; F32.9 Major depressive disorder, single episode, unspecified; Z79.899 Other long term (current) drug therapy; Z88.2 Allergy status to sulfonamides; Z82.49 Family history of ischemic heart disease and other diseases of the circulatory system; Z83.3 Family history of diabetes mellitus; Z68.34 Body mass index [BMI] 34.0-34.9, adult
CPT/HCPCS: 36415; 70490; 71045; 71250; 76000; 80053; 83605; 83735; 83880; 84100; 85025; 85610; 85730; 86850; 86900; 86901; 87641; 94002; A9270-GY; J0330; J0690; J1100; J1170; J1200; J2250; J2405; J2704

== ENCOUNTER 2023-12-28 11:10 | Inpatient (IN) ==
[2023-12-28] MEDS: Iodixanol (CONTRAST) 320 MG/ML 100 ML SDV IV ONE (11:31)
[2023-12-28 11:47] LABS: ABS Lymphocytes 1.2 10^3/uL (1.0-4.8); ABS Monocytes 0.5 10^3/uL (0.0-0.9); ABS Neutrophils 6.8 10^3/uL (1.5-7.6); Eosinophil % 0.1 %; Hematocrit 37.6 % (35-45); Hemoglobin 12.9 g/dL (11.5-14.3); Lymphocyte % 13.6 %; Mean Corpuscular Hemoglobin 29.7 pg (27-33); Mean Corpuscular Hgb Conc 34.2 g/dL (31-36); Mean Corpuscular Volume 86.8 fL (80-97); Mean Platelet Volume 8.8 fL (7.5-11.2); Platelet Count 227 10^3/uL (150-450); Red Blood Count 4.34 10^6/uL (3.63-4.92); Red Cell Distribution Width 14.7 % (12-17); White Blood Count 8.5 10^3/uL (3.8-11.8)
[2023-12-28 11:57] LABS: INR 1.12 (0.83-1.13)
[2023-12-28 12:11] LABS: High Sens Troponin Baseline 7 pg/mL (<15)
[2023-12-28 12:30] LABS: Urine Appearance Clear; Urine Bacteria 3+ /HPF (Absent); Urine Bilirubin Negative (Negative); Urine Blood Negative (Negative); Urine Color Yellow; Urine Glucose Negative (Negative); Urine Ketones 2+ (Negative); Urine Nitrite 2+ (Negative); Urine Protein 1+ (>=30 mg/dL) (Negative); Urine Red Blood Cell 1+(3-5/hpf) /HPF (0-Trace); Urine Specific Gravity >1.050 (1.002-1.030); Urine Urobilinogen 1+ (Negative); Urine White Blood Cell Trace(0-5/hpf) /HPF (0-Trace)
[2023-12-28 12:41] LABS: ALT 29 U/L (7-52); AST 30 U/L (13-39); Albumin/Globulin Ratio 1.8 (1-3); Alkaline Phosphatase 54 U/L (35-149); Anion Gap 12 mmol/L (2-16); Blood Urea Nitrogen 34 mg/dL (6-24); CO2 Carbon Dioxide 24 mmol/L (22-32); Calcium 9.1 mg/dL (8.6-10.3); Chloride 102 mmol/L (101-111); Creatinine, Serum 0.95 mg/dL (0.51-0.95); Globulin 2.2 g/dL (2-4); Glucose 136 mg/dL (70-100); Potassium 3.2 mmol/L (3.5-5.0); Sodium 138 mmol/L (135-145); Total Bilirubin 0.8 mg/dL (0.2-1.0); Total Protein 6.2 g/dL (6.4-8.9); eGFR CKD-EPI 62.1 (>60)
[2023-12-28] MEDS ORDERED: cefTRIAXone 2 GM ADDV.VIAL 2 GM in NS 0.9% 100 ml BAG 100 ML IV ONE (13:03)
[2023-12-28 13:13] LABS: High Sensitivity Troponin 1 Hr 8 pg/mL (<15)
[2023-12-28] MEDS: cefTRIAXone 2 gm/50 mL D5W 2 GM/50 ML BAG IV ONE (13:22)
[2023-12-28 15:19] LABS: C Reactive Protein 4.85 mg/L (<8.01)
[2023-12-28] MEDS: Potassium Chlor 20 meq TAB.ER PO ONE (16:35)
[2023-12-28] MEDS ORDERED: Fluoxetine 40 mg CAP (NF) PO SCH (17:00)
[2023-12-28 17:05] LABS: TSH Ultra Thyroid Stim Horm 0.87 mcIU/mL (0.34-5.60)
[2023-12-28 17:16] LABS: Folate 13.12 ng/mL (5.90-24.80)
[2023-12-28 17:17] LABS: Vitamin B12 > 1450 pg/mL (180-914)
[2023-12-28] MEDS: Heparin 5000 UNITS/ML 1 mL VIAL SUBCUT ONE (17:45)
[2023-12-28] MEDS: NS 0.9% 1000 ml BAG 1,000 ML IV SCH (17:45)
[2023-12-28] MEDS: Enoxaparin 40 MG/0.4 ML SYR SUBCUT ONE (18:42)
[2023-12-28] MEDS: Gadoteridol (CONTRAST) 279.3 MG/ML 10 ML IV ONE (20:25)
[2023-12-29 06:36] LABS: ABS Eosinophils 0.1 10^3/uL (0.0-0.5); ABS Lymphocytes 1.1 10^3/uL (1.0-4.8); ABS Monocytes 0.5 10^3/uL (0.0-0.9); ABS Neutrophils 3.7 10^3/uL (1.5-7.6); Lymphocyte % 20.9 %; Mean Corpuscular Hgb Conc 34.3 g/dL (31-36); Mean Corpuscular Volume 87.7 fL (80-97); Mean Platelet Volume 9.3 fL (7.5-11.2); Platelet Count 188 10^3/uL (150-450); Red Blood Count 3.99 10^6/uL (3.63-4.92); Red Cell Distribution Width 14.5 % (12-17); White Blood Count 5.4 10^3/uL (3.8-11.8)
[2023-12-29 08:53] LABS: Creatinine, Serum 0.73 mg/dL (0.51-0.95); Potassium 3.6 mmol/L (3.5-5.0); eGFR CKD-EPI 85.2 (>60)
[2023-12-29] MEDS: Polyethylene Glycol 3350 17 GM PACKET PO SCH (09:48)
[2023-12-29] MEDS: cefTRIAXone 1 gm/50 mL D5W 1 GM/50 ML BAG IV SCH (12:38)
[2023-12-29] MEDS: Acetaminophen IV 1 GM/100ML 1,000 MG/100 ML BAG IV ONE (20:11)
[2023-12-30] MEDS: Enoxaparin 40 MG/0.4 ML SYR SUBCUT SCH (18:03)
[2023-12-31] MEDS: Labetalol IV 5 MG/ML 20 ml VIAL IV PUSH ONE (14:53)
[2023-12-31] MEDS: cefTRIAXone 1 gm/50 mL D5W 1 GM/50 ML BAG IV SCH (19:34)
[2024-01-01] MEDS: Lactated Ringers 1000 ml BAG 500 ML IV ONE ×3 (00:19→23:00)
[2024-01-01] MEDS: diazePAM INJ CARPUJECT 5 MG/ML SYRINGE IV ONE (01:00)
[2024-01-01] MEDS: Metoprolol Tartrate 5 mg VIAL 5 ml VIAL (1 mg/ml) IV ONE (03:56)
[2024-01-03 13:48] VITALS: BP 108/76
== END 2024-01-03 15:05 | disposition home or self-care (01) | DRG 872 ==
LOC: EDHOLD 11:10 → ED 11:10 → SUATTDRO 14:17 → MEDTELE 17:02 → SUATTDRO 12-30 08:00
PROVIDERS: ADMIT Internal Medicine; ATTEND Internal Medicine